=== PATIENT | male | born 1955 | race Caucasian/White ===

== ENCOUNTER 2016-05-26 10:41 | Emergency (ER) | payer OTHER ==
[~2016-05-26] VITALS: Ht 179.1 cm; Wt 106.1 kg
[2016-05-26 10:43] VITALS: TEMP 36.2; Ht 179.1 cm; Wt 106.1 kg
[2016-05-26] MEDS ORDERED: BUPRTAB51 PO (11:17)
[2016-05-26] MEDS ORDERED: MULT-506 PO (11:17)
[2016-05-26] MEDS ORDERED: TRAZ50TA35 PO (11:17)
[2016-05-26] MEDS ORDERED: DULO60CA44 PO (11:17)
[2016-05-26] MEDS ORDERED: CHOL1000 PO (11:17)
[2016-05-26] MEDS ORDERED: NRN600 PO (11:17)
[2016-05-26] MEDS ORDERED: FERR1TAB13 PO (11:17)
[2016-05-26] MEDS ORDERED: ACET1TAB84 PO (11:17)
[2016-05-26] MEDS ORDERED: MODA1TAB6 PO (11:17)
[2016-05-26] MEDS ORDERED: CRS/10 PO (11:17)
[2016-05-26 11:21] VITALS: O2SAT 92
[2016-05-26 11:38] LABS: BASO % 0.6 %; BASO ABS # 0.04 K/uL (0-0.2); COMPLETE YES; EOS % 7.4 %; HEMATOCRIT 40.7 % (42-52); IG% 0.1 %; LYMPH % 21.2 %; LYMPH ABS # 1.52 K/uL (1.2-3.4); MEAN CORPUSCULAR HEMOGLOBIN 31.2 pg (25-34); MEAN CORPUSCULAR HGB CONC 33.2 g/dl (32-36); MEAN PLATELET VOLUME 9.9 fL (7.4-10.4); MONO % 8.1 %; NEUT % 62.6 %; PLATELET COUNT 221 K/uL (130-400); RED BLOOD COUNT 4.33 M/uL (4.7-6.1); WHITE BLOOD COUNT 7.16 K/uL (4.8-10.8)
[2016-05-26 11:46] LABS: INR 0.9 (0.9-1.1); PARTIAL THROMBOPLASTIN RATIO 0.9; PROTHROMBIN TIME (PATIENT) 9.8 SECONDS (9.0-12.0)
[2016-05-26 11:53] LABS: BUN/CREATININE RATIO 11.8 (10-20); CALCIUM 8.7 mg/dl (8.5-10.1); CREATININE 0.92 mg/dl (0.60-1.40); POTASSIUM 3.8 mmol/L (3.5-5.1)
[2016-05-26 11:55] LABS: ALB/GLOB RATIO 1.2 (0.9-2)
--- NOTE | 2016-05-26 12:12 | DIAGNOSTIC IMAGING REPORT ---
RIGHT TIBIA AND FIBULA 2 VIEWS CLINICAL HISTORY: Right leg pain. FINDINGS: AP and lateral views of the right tibia and fibula are obtained. No prior studies are available for comparison at the time of dictation. The skeletal structures are well mineralized. There is a healing spiral fracture of the distal fibula. There is only minimal distraction. Periosteal reaction is noted. No tibial fracture is seen. The knee and ankle joints are grossly maintained. Soft tissue edema is present throughout the leg. A large plantar calcaneal enthesophyte is observed. IMPRESSION: 1. There is a healing spiral fracture of the distal fibular shaft as above. 2. No tibial fracture is seen. 3. Diffuse soft tissue edema is present throughout the right lower extremity. Electronically signed by: Renan Grossman M.D. 05/26/2016 12:11 PM Dictated Date/Time: 05/26/2016 12:09 PM
--- NOTE | 2016-05-26 12:13 | DIAGNOSTIC IMAGING REPORT ---
ULTRASOUND RIGHT LOWER EXTREMITY VENOUS CLINICAL HISTORY: Right leg pain and swelling. COMPARISON STUDY: No priors. TECHNIQUE: Real-time, grayscale, and color Doppler sonography of the deep veins of the right lower extremity was performed from the inguinal crease to the calf. Compression and augmentation were utilized. FINDINGS: There is no sonographic evidence of deep venous thrombosis identified in the right lower extremity. The common femoral, superficial femoral, and popliteal veins are patent and normally compressible. The greater saphenous vein and the profunda femoris vein at the junction with the common femoral vein are clear. The visualized calf veins are patent. IMPRESSION: There is no sonographic evidence of deep venous thrombosis identified in the right lower extremity. Electronically signed by: Renan Grossman M.D. 05/26/2016 12:12 PM Dictated Date/Time: 05/26/2016 12:11 PM
[2016-05-26 12:23] VITALS: O2SAT 98
[2016-05-26] MEDS ORDERED: METHYLPREDNISOLONE 125 MG VIAL IV STA (13:29)
[2016-05-26] MEDS ORDERED: DiphenhydrAMINE HCL 50 MG/ML VIAL IV STA (13:29)
[2016-05-26] MEDS ORDERED: FAMOTIDINE IV INJ 20 MG in DEXTROSE 5% 100ML 100 ML IV STA (13:29)
[2016-05-26] MEDS ORDERED: FAMOTIDINE 20MG/102 ML D5W ONE (13:42)
[2016-05-26 14:15] VITALS: BP 121/51; PULSE 54
[2016-05-26] MEDS ORDERED: OPTIRAY 320 IV PRN (15:00)
--- NOTE | 2016-05-26 15:09 | DIAGNOSTIC IMAGING REPORT ---
CT VENOGRAM OF THE PELVIS CLINICAL HISTORY: Right lower extremity edema. COMPARISON STUDY: Venous ultrasound of the right lower extremity dated 05/26/2016. TECHNIQUE: Following the IV administration of 93 cc of Optiray 20, CT venogram of the pelvis is performed from the pelvic inlet to the proximal femora. Images reviewed in the axial, sagittal, and coronal planes. IV contrast was not administered for this examination. CT DOSE: 550.05 mGy.cm FINDINGS: There is mild atherosclerotic calcification of the distal abdominal aorta and iliac arteries which are patent. The iliac veins are patent bilaterally. There is no evidence of pelvic deep venous thrombosis. The visualized bowel loops are normal in course and caliber. There is moderate colonic fecal retention. No pelvic sidewall or inguinal lymphadenopathy is seen. The bladder, prostate, and seminal vesicles are normal as visualized. There is mild dilatation of the distal ureters which is likely chronic. The proximal ureters are more normal in caliber. A fat-containing umbilical hernia is noted. There is no free fluid in the pelvis. The skeletal structures are osteopenic. The bony pelvis appears intact. No lytic or blastic lesions are identified. IMPRESSION: 1. There is no evidence of pelvic deep venous thrombosis as clinically queried. 2. No acute infectious or inflammatory findings are identified in the pelvis. 3. There is distention of the distal ureters of indeterminant etiology and significance. This is likely chronic. Clinical correlation will be required. Electronically signed by: Renan Grossman M.D. 05/26/2016 3:07 PM Dictated Date/Time: 05/26/2016 3:00 PM
--- NOTE | 2016-05-26 16:09 | EMERGENCY ROOM VISIT NOTE ---
History Report prepared by Luly: Farhat Hopper Under the Supervision of: Dr. Juvenal Richardson M.D. First contact with patient: 10:45 Chief Complaint: LEG PAIN,LEG INJURY Stated Complaint: RIGHT LEG PAIN POSSIBLE BLOOD CLOT History of Present Illness The patient is a 61 year old male who presents to the Emergency Room with complaints of waxing & waning right lower leg pain since last night. The pain started last night, was improved this morning, then worsened at work today. The pain is sharp and radiates up to his groin. The pain is rated 3/10 in severity. The pain is worsened when he sits down after being on his feet for an extended amount of time. The patient also noticed increased swelling and redness to the leg two days ago. The swelling is better today compared to last night. The patient had a fibular fracture repaired in March. He was in a non weight bearing boot until last week. This week he was in a walking boot. He denies any personal history of blood clots. He does have a family history of clots. Patient denies LOC, headache, fevers, chills, diaphoresis, visual changes, neck pain, chest pain, breathing difficulties, nausea, vomiting, abdominal pain, back pain, melena, hematochezia, urinary symptoms, numbness, weakness, lymphadenopathy, rash, or other complaints. Source of History: patient Onset: last night Position: leg (right, lower) Symptom Intensity: 3/10 Quality: sharp Timing: waxes/wanes Review of Systems See HPI for pertinent positives and negatives. A total of ten systems were reviewed and were otherwise negative. Past Medical & Surgical Medical Problems: (1) Anemia (2) Sleep apnea Family History Blood clots Social History Smoking Status: Former Smoker Housing Status: lives with family Occupation Status: employed Current/Historical Medications Scheduled Acetaminophen (Tylenol Arthritis Ext Rel), 650 MG PO Q8H Bupropion Hcl (Wellbutrin Xl), 300 MG PO DAILY Cholecalciferol (Vitamin D3), 1 TAB PO DAILY Duloxetine Hcl (Cymbalta), 60 MG PO DAILY Ferrous Sulfate (Kp Ferrous Sulfate), 1 TAB PO DAILY Gabapentin (Gabapentin), 600 MG PO HS Modafinil (Provigil), 200 MG PO DAILY Multivitamin (Multivitamin), 1 TAB PO DAILY Rosuvastatin Calcium (Crestor), 10 MG PO HS Trazodone Hcl (Trazodone), 75 MG PO HS Allergies Coded Allergies: Iodine (Unverified Allergy, Severe, unknown, 05/26/16) Meperidine (Unverified Allergy, Severe, hypertension, 05/26/16) NSAIDs (Unverified Allergy, Severe, hypertension, 05/26/16) Physical Exam Vital Signs Date Time Temp Pulse Resp B/P Pulse Ox O2 Delivery O2 Flow Rate FiO2 05/26/16 14:15 54 20 121/51 05/26/16 12:23 61 16 107/67 98 05/26/16 11:40 66 05/26/16 11:21 92 Room Air 05/26/16 10:43 36.2 82 18 119/74 97 Room Air Physical Exam GENERAL: Awake, alert, well-appearing, in no distress HENT: Normocephalic, atraumatic. Oropharynx unremarkable. EYES: Normal conjunctiva. Sclera non-icteric. NECK: Supple. No nuchal rigidity. FROM. No JVD. RESPIRATORY: Clear to auscultation. CARDIAC: Regular rate, normal rhythm. Extremities warm and well perfused. Pulses equal. ABDOMEN: Soft, non-distended. No tenderness to palpation. No rebound or guarding. No masses. RECTAL: Deferred. MUSCULOSKELETAL: Chest examination reveals no tenderness. The back is symmetrical on inspection without obvious abnormality. There is no CVA tenderness to palpation. No joint edema. LOWER EXTREMITIES: Right lower extremity: Normal TP and DP, capillary refill is 2 seconds. Leg is warm to touch. Minimal erythema noted. Right leg is larger than the left. Equivocal Homans on the right. NEURO: Normal sensorium. No sensory or motor deficits noted. SKIN: No rash or jaundice noted. Medical Decision & Procedures ER Provider Diagnostic Interpretation: X ray results as stated below per my interpretation and radiologist interpretation. Other radiology results as stated below per my review and radiologist interpretation ULTRASOUND RIGHT LOWER EXTREMITY VENOUS CLINICAL HISTORY: Right leg pain and swelling. COMPARISON STUDY: No priors. TECHNIQUE: Real-time, grayscale, and color Doppler sonography of the deep veins of the right lower extremity was performed from the inguinal crease to the calf. Compression and augmentation were utilized. FINDINGS: There is no sonographic evidence of deep venous thrombosis identified in the right lower extremity. The common femoral, superficial femoral, and popliteal veins are patent and normally compressible. The greater saphenous vein and the profunda femoris vein at the junction with the common femoral vein are clear. The visualized calf veins are patent. IMPRESSION: There is no sonographic evidence of deep venous thrombosis identified in the right lower extremity. Electronically signed by: Renan Grossman M.D. 05/26/2016 12:12 PM Dictated Date/Time: 05/26/2016 12:11 PM RIGHT TIBIA AND FIBULA 2 VIEWS CLINICAL HISTORY: Right leg pain. FINDINGS: AP and lateral views of the right tibia and fibula are obtained. No prior studies are available for comparison at the time of dictation. The skeletal structures are well mineralized. There is a healing spiral fracture of the distal fibula. There is only minimal distraction. Periosteal reaction is noted. No tibial fracture is seen. The knee and ankle joints are grossly maintained. Soft tissue edema is present throughout the leg. A large plantar calcaneal enthesophyte is observed. IMPRESSION: 1. There is a healing spiral fracture of the distal fibular shaft as above. 2. No tibial fracture is seen. 3. Diffuse soft tissue edema is present throughout the right lower extremity. Electronically signed by: Renan Grossman M.D. 05/26/2016 12:11 PM Dictated Date/Time: 05/26/2016 12:[address] VENOGRAM OF THE PELVIS CLINICAL HISTORY: Right lower extremity edema. COMPARISON STUDY: Venous ultrasound of the right lower extremity dated 05/26/2016. TECHNIQUE: Following the IV administration of 93 cc of Optiray 20, CT venogram of the pelvis is performed from the pelvic inlet to the proximal femora. Images reviewed in the axial, sagittal, and coronal planes. IV contrast was not administered for this examination. CT DOSE: 550.05 mGy.cm FINDINGS: There is mild atherosclerotic calcification of the distal abdominal aorta and iliac arteries which are patent. The iliac veins are patent bilaterally. There is no evidence of pelvic deep venous thrombosis. The visualized bowel loops are normal in course and caliber. There is moderate colonic fecal retention. No pelvic sidewall or inguinal lymphadenopathy is seen. The bladder, prostate, and seminal vesicles are normal as visualized. There is mild dilatation of the distal ureters which is likely chronic. The proximal ureters are more normal in caliber. A fat-containing umbilical hernia is noted. There is no free fluid in the pelvis. The skeletal structures are osteopenic. The bony pelvis appears intact. No lytic or blastic lesions are identified. IMPRESSION: 1. There is no evidence of pelvic deep venous thrombosis as clinically queried. 2. No acute infectious or inflammatory findings are identified in the pelvis. 3. There is distention of the distal ureters of indeterminant etiology and significance. This is likely chronic. Clinical correlation will be required. Electronically signed by: Renan Grossman M.D. 05/26/2016 3:07 PM Dictated Date/Time: 05/26/2016 3:00 PM Laboratory Results 05/26/16 11:25 Red Blood Count 4.33, Mean Corpuscular Volume 94.0, Mean Corpuscular Hemoglobin 31.2, Mean Corpuscular Hemoglobin Concent 33.2, Mean Platelet Volume 9.9, Neutrophils (%) (Auto) 62.6, Lymphocytes (%) (Auto) 21.2, Monocytes (%) (Auto) 8.1, Eosinophils (%) (Auto) 7.4, Basophils (%) (Auto) 0.6, Neutrophils # (Auto) 4.48, Lymphocytes # (Auto) 1.52, Monocytes # (Auto) 0.58, Eosinophils # (Auto) 0.53, Basophils # (Auto) 0.04 05/26/16 11:25 Test 05/26/16 11:25 White Blood Count 7.16 K/uL (4.8-10.8) Red Blood Count 4.33 M/uL (4.7-6.1) Hemoglobin 13.5 g/dL (14.0-18.0) Hematocrit 40.7 % (42-52) Mean Corpuscular Volume 94.0 fL (80-100) Mean Corpuscular Hemoglobin 31.2 pg (25-34) Mean Corpuscular Hemoglobin Concent 33.2 g/dl (32-36) Platelet Count 221 K/uL (130-400) Mean Platelet Volume 9.9 fL (7.4-10.4) Neutrophils (%) (Auto) 62.6 % Lymphocytes (%) (Auto) 21.2 % Monocytes (%) (Auto) 8.1 % Eosinophils (%) (Auto) 7.4 % Basophils (%) (Auto) 0.6 % Neutrophils # (Auto) 4.48 K/uL (1.4-6.5) Lymphocytes # (Auto) 1.52 K/uL (1.2-3.4) Monocytes # (Auto) 0.58 K/uL (0.11-0.59) Eosinophils # (Auto) 0.53 K/uL (0-0.5) Basophils # (Auto) 0.04 K/uL (0-0.2) RDW Standard Deviation 45.5 fL (36.4-46.3) RDW Coefficient of Variation 13.1 % (11.5-14.5) Immature Granulocyte % (Auto) 0.1 % Immature Granulocyte # (Auto) 0.01 K/uL (0.00-0.02) Prothrombin Time 9.8 SECONDS (9.0-12.0) Prothromb Time International Ratio 0.9 (0.9-1.1) Activated Partial Thromboplast Time 23.7 SECONDS (21.0-31.0) Partial Thromboplastin Ratio 0.9 Anion Gap 9.0 mmol/L (3-11) Est Creatinine Clear Calc Drug Dose 105.0 ml/min Estimated GFR () 104.4 Estimated GFR (Non- 90.1 BUN/Creatinine Ratio 11.8 (10-20) Calcium Level 8.7 mg/dl (8.5-10.1) Total Bilirubin 0.2 mg/dl (0.2-1) Aspartate Amino Transf (AST/SGOT) 24 U/L (15-37) Alanine Aminotransferase (ALT/SGPT) 38 U/L (12-78) Alkaline Phosphatase 107 U/L (45-117) Total Protein 7.1 gm/dl (6.4-8.2) Albumin 3.8 gm/dl (3.4-5.0) Globulin 3.3 gm/dl (2.5-4.0) Albumin/Globulin Ratio 1.2 (0.9-2) Laboratory results reviewed by me Medications Administered Medications (Trade) Dose Ordered Sig/Jimi Route Start Time Stop Time Status Last Admin Dose Admin Diphenhydramine HCl (Benadryl Inj) 50 mg NOW STAT IV 05/26/16 13:29 05/26/16 13:31 DC 05/26/16 13:46 50 MG Methylprednisolone Sodium Succinate 125 mg 125 mg NOW STAT IV 05/26/16 13:29 05/26/16 13:31 DC 05/26/16 13:47 125 MG Famotidine/ Dextrose (Pepcid IV Inj/ D5 100ml) 102 ml @ 200 mls/hr NOW STAT IV 05/26/16 13:29 05/26/16 13:59 DC 05/26/16 13:47 200 MLS/HR ED Course 1050: The patient was evaluated by my medical student. 1120: The patient was evaluated in room C3. A complete history and physical exam was performed. 1315: The patient is doing well. I reviewed all of the results so far. 1323: Spoke with Dr. Ramos, Diagnostic Radiologist. We will do a CTA Pelvis. 1329: Benadryl 50 mg IV, Solu-Medrol 125 mg IV. 1355: The patient had a reaction to IV dye over 40 years ago. I ordered Solu- Medrol and Benadryl preemptively. 1515: Reassessed the patient. Discussed the findings with him. He verbalized understanding and agreement of the treatment plan. He will take compression stockings with him. The patient is ready for discharge. Medical Decision Prior records reviewed and summarized above. Triage Nursing notes reviewed and agree them. Additional history obtained from the family. The patient's history was concerning for swelling and pain in the leg. Differential diagnosis: Etiologies such as DVT, joint effusion, infection, trauma, muscular, lymphedema , idiopathic, CHF, as well as others were entertained.. Physical examination: The physical examination revealed no signs of infection. Neurovascularly intact. ER treatment provided: The patient declined analgesia Benadryl, Pepcid, and Solu-Medrol prior to CT imaging On reassessment the patient felt well. SHRADDHA venus Diagnostics interpreted by me: The labs revealed an unremarkable CBC and chemistry panel. Imaging studies: Ultrasound, x-ray, and CT scan as above The patient has some dependent edema. He notes and awaiting more recently and this may be the cause of his swelling. He has no blood clot. He has great arterial pulses. There is no sign of infection. The patient has no white count or fever. There is no cellulitis on examination. The patient has no obstruction of his venous system all the way to the IVC. His left leg is completely normal. He does have some hydroureter however when questioning the patient states this is chronic and he has had this as a teenager. I discussed conservative management with the patient. He will follow-up as an outpatient. I gave my usual and customary discussion regarding this issue. He was given compression stockings. By the evaluation outlined above emergent etiologies such as septic joint, trauma, infection, CHF, as well as others were deemed relatively unlikely. The patient was informed about the findings as listed above. All questions were answered and he was pleased with the treatment. Return instructions were outlined and the patient was discharged in stable condition. Outpatient prescription management: The change Referral: The patient was referred back to his primary care physician for follow-up for a recheck of the current condition. The chart was completed utilizing [employer] Speech voice recognition software. Grammatical errors, random word insertions, pronoun errors, and incomplete sentences are an occasional consequence of this system due to software limitations, ambient noise, and hardware issues. Any formal questions or concerns about the content, text, or information contained within the body of this dictation should be directly addressed to the physician for clarification. Impression Primary Impression: Edema of right lower extremity Scribe Attestation The scribe's documentation has been prepared under my direction and personally reviewed by me in its entirety. I confirm that the note above accurately reflects all work, treatment, procedures, and medical decision making performed by me. Departure Information Dispostion Home / Self-Care Referrals Nikhil Landry MD (PCP) Forms HOME CARE DOCUMENTATION FORM, IMPORTANT VISIT INFORMATION Patient Instructions My [facility] Additional Instructions Diagnosis: 1. Right lower extremity edema Continue current medications. Use the compression stockings as discussed. Elevate your leg to minimize swelling. Continue care as outlined by orthopedics. Return to the ER immediately for spreading redness, fevers, severe pain, or as needed.
== END 2016-05-26 15:54 | disposition home or self-care (01) ==
LOC: C.EDB 10:43 → C.EDC 15:54
DX: R60.0 Localized edema (principal); M79.604 Pain in right leg; N13.4 Hydroureter; G47.30 Sleep apnea, unspecified; Z87.891 Personal history of nicotine dependence

== ENCOUNTER 2017-08-16 14:20 | Emergency (ER) | payer OTHER ==
[~2017-08-16 14:20] MED LIST: ACET1TAB84 PO; BUPRTAB51 PO; CHOL1000 PO; CRS/10 PO; DULO60CA44 PO; FERR1TAB13 PO; MODA200T42 PO; MULT-506 PO; NRN600 PO; TRAZ50TA35 PO
[2017-08-16 14:25] VITALS: TEMP 36.7
[2017-08-16] MEDS ORDERED: HYDROmorphone INJ 1 MG/ML SYR IV STA ×2 (14:54→16:41)
[2017-08-16] MEDS ORDERED: METOCLOPRAMIDE HCL INJ 5 MG/ML 2 ML VIAL IV STA (14:54)
[2017-08-16] MEDS ORDERED: SODIUM CHLORIDE 0.9% 1000ML 1,000 ML IV STA (14:54)
[2017-08-16] MEDS ORDERED: OPTIRAY 320 IV PRN (15:15)
[2017-08-16] MEDS ORDERED: ONDANSETRON INJ 2 MG/ML 2 ML VIAL IV STA (15:16)
[2017-08-16] MEDS ORDERED: DOCU-94 PO (15:32)
[2017-08-16] MEDS ORDERED: FERR325T5 PO (15:32)
[2017-08-16] MEDS ORDERED: PANT40TA PO (15:32)
[2017-08-16] MEDS ORDERED: ARMO250T5 PO (15:32)
[2017-08-16] MEDS ORDERED: GLUCTAB18 PO (15:32)
[2017-08-16] MEDS ORDERED: MISC4CAP PO (15:32)
[2017-08-16] MEDS ORDERED: ENOX40IN SQ (15:32)
[2017-08-16] MEDS ORDERED: MULT-190 PO (15:32)
[2017-08-16] MEDS ORDERED: ZALE5CAP29 PO (15:32)
[2017-08-16] MEDS ORDERED: TAMS0.4C38 PO (15:32)
[2017-08-16] MEDS ORDERED: POLYSOL4 OPB (15:32)
[2017-08-16 15:39] LABS: ISTAT IONIZED CALCIUM 1.16 mmol/l (1.12-1.32); ISTAT POTASSIUM 4.3 mEq/L (3.3-5.0)
[2017-08-16 15:50] LABS: BASO % 0.4 %; BASO ABS # 0.03 K/uL (0-0.2); EOS % 11.1 %; EOS ABS # 0.89 K/uL (0-0.5); HEMATOCRIT 37.1 % (42-52); HEMOGLOBIN 11.8 g/dL (14.0-18.0); IG# 0.04 K/uL (0.00-0.02); LYMPH % 22.5 %; MEAN CELL VOLUME 93.5 fL (80-100); MEAN CORPUSCULAR HEMOGLOBIN 29.7 pg (25-34); MEAN CORPUSCULAR HGB CONC 31.8 g/dl (32-36); MEAN PLATELET VOLUME 10.1 fL (7.4-10.4); MONO % 8.5 %; MONO ABS # 0.68 K/uL (0.11-0.59); NEUT ABS # 4.55 K/uL (1.4-6.5); PLATELET COUNT 234 K/uL (130-400); RED CELL DISTRIBUTION WIDTH CV 14.2 % (11.5-14.5); RED CELL DISTRIBUTION WIDTH SD 48.6 fL (36.4-46.3); WHITE BLOOD COUNT 7.99 K/uL (4.8-10.8)
--- NOTE | 2017-08-16 16:15 | EMERGENCY ROOM VISIT NOTE ---
History Report prepared by Luly: Yoli Alarcon Under the Supervision of: Dr. Fabio Harris M.D. First contact with patient: 14:39 Chief Complaint: OTHER COMPLAINT Stated Complaint: PAIN,TROUBLE WITH SHANTELLE DRAIN History of Present Illness The patient is a 62 year old male who presents to the Emergency Room with complaints of persistent right-sided abdominal pain, secondary to complications with his SHANTELLE drain that began earlier today. He reports that he had the SHANTELLE drain placed by Dr. Svitlana Quinteros at the [facility], noting that he followed up with him on 08/03/17. The patient states that today when he woke up he noticed that his SHANTELLE drain was clogged, noting that he began experiencing abdominal pain shortly after. He reports that his pain worsens when he sits up or with any movement, noting that laying down reduces the pain intensity. The patient called Dr. Quinteros, who told him he wasn't sure if he should change the bulb. Source of History: patient Onset: earlier today Position: abdomen (right-sided) Quality: other (right-sided abdominal pain) Timing: other (persistent) Modifying Factors (Worsening): movement, other (sits up) Modifying Factors (Relieving): other (laying down) Review of Systems See HPI for pertinent positives & negatives. A total of 10 systems reviewed and were otherwise negative. Past Medical & Surgical Medical Problems: (1) Anemia (2) Sleep apnea Family History Blood clots Social History Smoking Status: Former Smoker Housing Status: lives with family Occupation Status: employed Current/Historical Medications Scheduled Armodafinil (Nuvigil), 250 MG PO DAILY Bupropion Hcl (Wellbutrin Xl), 300 MG PO DAILY Cholecalciferol (Vitamin D3), 1,000 INTER.UNIT PO DAILY Docusate Sodium (Colace), 100 MG PO BID Duloxetine Hcl (Cymbalta), 60 MG PO DAILY Enoxaparin (Lovenox), 40 MG SQ DAILY Ferrous Sulfate (Ferrous Sulfate), 325 MG PO Q2D Gabapentin (Gabapentin), 600 MG PO HS Glucosamine-Chondroitin (Osteo Bi-Flex Regular Str), 1 TAB PO BID Multivitamin (Multivitamin), 1 TAB PO DAILY Ocuvite Preservision (Ocuvite Preservision), 1 TAB PO BID Pantoprazole (Protonix), 40 MG PO DAILY Polyethylene Glycol-Propylene (Systane), 1 DROP OPB BID Probiotic Product (Align), 4 MG PO QPM Rosuvastatin Calcium (Crestor), 10 MG PO HS Tamsulosin Hcl (Flomax), 0.4 MG PO BID Trazodone Hcl (Trazodone), 100 MG PO HS Scheduled PRN Acetaminophen (Tylenol Arthritis Ext Rel), 650 MG PO Q8H PRN for Pain Zaleplon (Sonata), 5 MG PO HS PRN for Sleep Allergies Coded Allergies: Iodine (Unverified Allergy, Severe, unknown, 05/26/16) Meperidine (Unverified Allergy, Severe, hypertension, 05/26/16) NSAIDs (Unverified Allergy, Severe, hypertension, 05/26/16) Physical Exam Vital Signs Date Time Temp Pulse Resp B/P (MAP) Pulse Ox O2 Delivery O2 Flow Rate FiO2 08/16/17 18:04 59 18 149/84 98 08/16/17 17:36 60 18 96/58 08/16/17 16:36 63 22 112/61 95 Nasal Cannula 2.0 08/16/17 15:44 63 08/16/17 15:44 59 19 113/62 92 Room Air 08/16/17 14:25 36.7 72 20 107/66 95 Room Air Physical Exam GENERAL: Awake, alert, well-appearing, in no acute distress. Fully in place. HENT: Normocephalic, atraumatic. Oropharynx unremarkable. EYES: Normal conjunctiva. Sclera non-icteric. NECK: Supple. No nuchal rigidity. FROM. No JVD. RESPIRATORY: Clear to auscultation. CARDIAC: Regular rate, normal rhythm. Extremities warm and well perfused. Pulses equal. ABDOMEN: 1 SHANTELLE drain that has a clot blocking the drain. Abdomen is diffusively tender. Surgical wounds appear to be healing well. Soft, non-distended. No rebound or guarding. No masses. RECTAL: Deferred. MUSCULOSKELETAL: Chest examination reveals no tenderness. The back is symmetrical on inspection without obvious abnormality. There is no CVA tenderness to palpation. No joint edema. LOWER EXTREMITIES: Calves are equal size bilaterally and non-tender. No edema. No discoloration. NEURO: Normal sensorium. No sensory or motor deficits noted. SKIN: No rash or jaundice noted. Medical Decision & Procedures ER Provider Diagnostic Interpretation: Radiology results as stated below per my review and radiologist interpretation: ABD/PELVIS NO IV OR ORAL CONT CLINICAL HISTORY: 62 years-old Male presenting with Pt has shantelle drain in place, increasing abd pain. TECHNIQUE: Multidetector CT of the abdomen and pelvis was performed without the use of intravenous contrast. IV contrast: None. A dose lowering technique was used consistent with the principles of ALARA (as low as reasonably achievable). COMPARISON: CTA from 05/26/2016. CT DOSE (mGy.cm): The estimated cumulative dose is 1079.88 mGycm. FINDINGS: Internal Medicine Nurse topogram: Unremarkable. Lung bases: Extensive bandlike and dependent opacities at the lung bases, likely extensive atelectasis. Mild multichamber enlargement of the heart. No pericardial or pleural effusion. Liver: Normal morphology. Normal density. Biliary: No gross biliary ductal dilatation allowing for noncontrast technique. Normal gallbladder. Pancreas: Mild parenchymal atrophy. Spleen: Normal noncontrast appearance. Adrenal glands: Normal noncontrast appearance. Kidneys and ureters: Normal noncontrast appearance. No nephrolithiasis. No hydronephrosis. Dilatation of the right ureter without evidence of an obstructing calculus. The ureter remains dilated to the level of the ureterovesical junction. The left ureter is not as dilated as the right. Bladder: Bladder decompressed with a Horn catheter. Pelvic organs: The patient is status post prostatectomy. A Wilian-Zuniga drain is in place in the prevesical space. No significant fluid at the terminus or along the course of the drain. Bowel: Moderate stool burden throughout normal caliber colon. Mild wall thickening of the mid sigmoid colon. Evaluation for pericolonic inflammatory change is difficult given the presence of extensive postsurgical changes in this region. No bowel obstruction. Peritoneal cavity: No free fluid or intraperitoneal gas. No focal fluid collection to suggest abscess. Extraperitoneal gas evident, likely postsurgical. This extends into the bilateral inguinal canals. Lymph nodes: No gross lymphadenopathy allowing for noncontrast technique. Small amount of fluid along the obturator regions bilaterally likely from lymph node dissection. Vasculature: Atherosclerosis of the normal caliber abdominal aorta. Abdominal wall: Small amount of fluid in the ventral midline abdomen along a suspected and surgical incision site in the supraumbilical region. Multiple foci of gas in the subcutaneous tissue of the anterior abdominal wall likely from and medication injection. No fluid along the Wilian-Zuniga drain, which enters in the right anterolateral abdomen. Musculoskeletal: Normal. IMPRESSION: 1. Postsurgical changes of prostatectomy. The degree of infiltration in the pelvis is likely expected postsurgically. No evidence of a focal abscess align for noncontrast technique. Small amount of fluid in the obturator regions of the external iliac lymph node chains likely represent lymph node dissection. No lymphadenopathy. 2. No significant fluid at the terminus of the Wilian-Zuniga drain. 3. Wall thickening of the mid sigmoid colon. This could indicate mild infectious colitis or be secondarily reactive from recent surgery. Although no significant diverticula are evident, this may also represent chronic diverticular disease. 4. Extensive bibasilar atelectasis. Electronically signed by: Gerry Paz M.D. 08/16/2017 4:21 PM Dictated Date/Time: 08/16/2017 4:14 PM Laboratory Results 08/16/17 15:20 Red Blood Count 3.97, Mean Corpuscular Volume 93.5, Mean Corpuscular Hemoglobin 29.7, Mean Corpuscular Hemoglobin Concent 31.8, Mean Platelet Volume 10.1, Neutrophils (%) (Auto) 57.0, Lymphocytes (%) (Auto) 22.5, Monocytes (%) (Auto) 8.5, Eosinophils (%) (Auto) 11.1, Basophils (%) (Auto) 0.4, Neutrophils # (Auto ) 4.55, Lymphocytes # (Auto) 1.80, Monocytes # (Auto) 0.68, Eosinophils # (Auto ) 0.89, Basophils # (Auto) 0.03 08/16/17 15:20 Test 08/16/17 15:20 08/16/17 15:25 08/16/17 17:20 White Blood Count 7.99 K/uL (4.8-10.8) Red Blood Count 3.97 M/uL (4.7-6.1) Hemoglobin 11.8 g/dL (14.0-18.0) Hematocrit 37.1 % (42-52) Mean Corpuscular Volume 93.5 fL (80-100) Mean Corpuscular Hemoglobin 29.7 pg (25-34) Mean Corpuscular Hemoglobin Concent 31.8 g/dl (32-36) Platelet Count 234 K/uL (130-400) Mean Platelet Volume 10.1 fL (7.4-10.4) Neutrophils (%) (Auto) 57.0 % Lymphocytes (%) (Auto) 22.5 % Monocytes (%) (Auto) 8.5 % Eosinophils (%) (Auto) 11.1 % Basophils (%) (Auto) 0.4 % Neutrophils # (Auto) 4.55 K/uL (1.4-6.5) Lymphocytes # (Auto) 1.80 K/uL (1.2-3.4) Monocytes # (Auto) 0.68 K/uL (0.11-0.59) Eosinophils # (Auto) 0.89 K/uL (0-0.5) Basophils # (Auto) 0.03 K/uL (0-0.2) RDW Standard Deviation 48.6 fL (36.4-46.3) RDW Coefficient of Variation 14.2 % (11.5-14.5) Immature Granulocyte % (Auto) 0.5 % Immature Granulocyte # (Auto) 0.04 K/uL (0.00-0.02) Estimated GFR () 86.4 Estimated GFR (Non- 74.5 BUN/Creatinine Ratio 12.1 (10-20) Calcium Level 8.9 mg/dl (8.5-10.1) Total Bilirubin 0.3 mg/dl (0.2-1) Direct Bilirubin < 0.1 mg/dl (0-0.2) Aspartate Amino Transf (AST/SGOT) 22 U/L (15-37) Alanine Aminotransferase (ALT/SGPT) 33 U/L (12-78) Alkaline Phosphatase 88 U/L (45-117) Total Protein 7.0 gm/dl (6.4-8.2) Albumin 3.1 gm/dl (3.4-5.0) Lipase 112 U/L (73-393) Bedside Hemoglobin 11.9 g/dl (14.0-18.0) Bedside Hematocrit 35 % (42-52) Bedside Sodium 141 mEq/L (135-144) Bedside Potassium 4.3 mEq/L (3.3-5.0) Bedside Chloride 103 mEq/L (101-112) Bedside Total CO2 27 mEq/l (24-31) Anion Gap 16.0 mmol/L (16-25) Bedside Blood Urea Nitrogen 13 mg/dl (7-18) Bedside Creatinine 1.0 mg/dl (0.6-1.3) Bedside Glucose (other) 95 mg/dl (70-99) Bedside Ionized Calcium (Maci) 1.16 mmol/l (1.12-1.32) Urine Color DK YELLOW Urine Appearance CLOUDY (CLEAR) Urine pH 6.0 (4.5-7.5) Urine Specific [place] 1.032 (1.000-1.030) Urine Protein 2+ (NEG) Urine Glucose (UA) NEG (NEG) Urine Ketones NEG (NEG) Urine Occult Blood 3+ (NEG) Urine Nitrite NEG (NEG) Urine Bilirubin 1+ (NEG) Urine Urobilinogen POS (NEG) Urine Leukocyte Esterase TRACE (NEG) Urine WBC (Auto) 5-10 /hpf (0-5) Urine RBC (Auto) >30 /hpf (0-4) Urine Hyaline Casts (Auto) 1-5 /lpf (0-5) Urine Epithelial Cells (Auto) 10-20 /lpf (0-5) Urine Bacteria (Auto) NEG (NEG) Urine Yeast (Auto) (NONE PRSENT) Labs reviewed by ED physician. Medications Administered Medications (Trade) Dose Ordered Sig/Jimi Route Start Time Stop Time Status Last Admin Dose Admin Hydromorphone HCl (Dilaudid Inj) 1 mg NOW STAT IV 08/16/17 14:54 08/16/17 14:57 DC 08/16/17 15:40 1 MG Sodium Chloride 1,000 ml @ 999 mls/hr Q1H1M STAT IV 08/16/17 14:54 08/16/17 15:54 DC 08/16/17 15:40 999 MLS/HR Ondansetron HCl (Zofran Inj) 4 mg NOW STAT IV 08/16/17 15:16 08/16/17 15:17 DC 08/16/17 15:39 4 MG Hydromorphone HCl (Dilaudid Inj) 1 mg NOW STAT IV 08/16/17 16:41 08/16/17 16:42 DC 08/16/17 17:07 1 MG ED Course 1446: Past medical records reviewed. The patient was evaluated in room A10. A complete history and physical examination was performed. 1454: Ordered Sodium Chloride 1000ml @ 999 mls/hr IV, Reglan Inj 10mg IV, and Dilaudid Inj 1mg IV. 1515: Just changed the patient's SHANTELLE grenade and it is now draining. Ordered Ioversol 125ml IV. 1516: Ordered Zofran Inj 4mg IV. 1546: I reevaluated the patient, who is feeling significantly better. 1641: Discussed the patient's case and test findings with Dr. Svitlana Quinteros at . He says that everything sounds good and would like me to remove the patient's SHANTELLE drain. He would like to have the patient follow up with him. Ordered Dilaudid Inj 1mg IV. 1704: I reevaluated the patient. Removed the patient's SHANTELLE drain. He feels much better. We discussed the test findings and treatment plan, he verbalized complete understanding. The patient will be discharged home. Medical Decision Differential diagnosis: Etiologies such as appendicitis, diverticulitis, PUD, biliary pathology, UTI, pancreatitis, obstruction, mesenteric ischemia, aortic pathology, infections, inflammatory bowel disease, renal colic, as well as others were entertained. This is a 62-year-old male who presents the emergency department complaining of increasing abdominal pain. The patient was sent in by his doctor at the [facility]. Using shared medical decision making with the patient we sent him for a CT of the abdomen and pelvis. The SHANTELLE drain itself does not appear to be near any large fluid collection. In addition the patient does not have a large elevation in his white blood cell count. He is slightly anemic however kidney liver and lipase are all essentially normal. An IV was established, the patient was given a normal saline bolus, Dilaudid 1 mg 2, Zofran. I did discuss the case with the patient's physician in the [facility] who agreed that the patient could be safely discharged home. He asked that I pull the SHANTELLE drain. Patient was in agreement with the treatment plan to follow-up with his doctor. Oleg Medication Reconcilliation Current Medication List: was personally reviewed by me Blood Pressure Screening Patient's blood pressure: Normal blood pressure Impression Primary Impression: Abdominal pain Additional Impression: Change or removal of drains Scribe Attestation The scribe's documentation has been prepared under my direction and personally reviewed by me in its entirety. I confirm that the note above accurately reflects all work, treatment, procedures, and medical decision making performed by me. Departure Information Dispostion Home / Self-Care Referrals Nikhil Landry MD (PCP) Forms HOME CARE DOCUMENTATION FORM, IMPORTANT VISIT INFORMATION, WORK / SCHOOL INSTRUCTIONS Patient Instructions My [facility] Additional Instructions Follow up with Dr Dejesus's office You have been examined and treated today on an emergency basis only. This is not a substitute for, or an effort to provide, complete comprehensive medical care. It is impossible to recognize and treat all injuries or illnesses in a single emergency department visit. It is therefore important that you follow up closely with Dr Landry. Call as soon as possible for an appointment. Thank you for your time and consideration. I look forward to speaking with you again soon. Please don't hesitate to call us if you have any questions. Problem Qualifiers Primary Impression: Abdominal pain Abdominal location: generalized Qualified Codes: R10.84 - Generalized abdominal pain
[2017-08-16 16:18] LABS: ALBUMIN 3.1 gm/dl (3.4-5.0); ALT/SGPT 33 U/L (12-78); AST/SGOT 22 U/L (15-37); BLOOD UREA NITROGEN 13 mg/dl (7-18); CALCIUM 8.9 mg/dl (8.5-10.1); CARBON DIOXIDE 28 mmol/L (21-32); CREATININE 1.07 mg/dl (0.60-1.40); GLUCOSE 91 mg/dl (70-99); LIPASE 112 U/L (73-393); POTASSIUM 4.4 mmol/L (3.5-5.1); SODIUM 140 mmol/L (136-145)
[2017-08-16 16:21] LABS: ALKALINE PHOSPHATASE 88 U/L (45-117)
--- NOTE | 2017-08-16 16:22 | DIAGNOSTIC IMAGING REPORT ---
ABD/PELVIS NO IV OR ORAL CONT CLINICAL HISTORY: 62 years-old Male presenting with Pt has shantelle drain in place, increasing abd pain. TECHNIQUE: Multidetector CT of the abdomen and pelvis was performed without the use of intravenous contrast. IV contrast: None. A dose lowering technique was used consistent with the principles of ALARA (as low as reasonably achievable). COMPARISON: CTA from 05/26/2016. CT DOSE (mGy.cm): The estimated cumulative dose is 1079.88 mGycm. FINDINGS: Production Service Manager topogram: Unremarkable. Lung bases: Extensive bandlike and dependent opacities at the lung bases, likely extensive atelectasis. Mild multichamber enlargement of the heart. No pericardial or pleural effusion. Liver: Normal morphology. Normal density. Biliary: No gross biliary ductal dilatation allowing for noncontrast technique. Normal gallbladder. Pancreas: Mild parenchymal atrophy. Spleen: Normal noncontrast appearance. Adrenal glands: Normal noncontrast appearance. Kidneys and ureters: Normal noncontrast appearance. No nephrolithiasis. No hydronephrosis. Dilatation of the right ureter without evidence of an obstructing calculus. The ureter remains dilated to the level of the ureterovesical junction. The left ureter is not as dilated as the right. Bladder: Bladder decompressed with a Horn catheter. Pelvic organs: The patient is status post prostatectomy. A Wilian-Zuniga drain is in place in the prevesical space. No significant fluid at the terminus or along the course of the drain. Bowel: Moderate stool burden throughout normal caliber colon. Mild wall thickening of the mid sigmoid colon. Evaluation for pericolonic inflammatory change is difficult given the presence of extensive postsurgical changes in this region. No bowel obstruction. Peritoneal cavity: No free fluid or intraperitoneal gas. No focal fluid collection to suggest abscess. Extraperitoneal gas evident, likely postsurgical. This extends into the bilateral inguinal canals. Lymph nodes: No gross lymphadenopathy allowing for noncontrast technique. Small amount of fluid along the obturator regions bilaterally likely from lymph node dissection. Vasculature: Atherosclerosis of the normal caliber abdominal aorta. Abdominal wall: Small amount of fluid in the ventral midline abdomen along a suspected and surgical incision site in the supraumbilical region. Multiple foci of gas in the subcutaneous tissue of the anterior abdominal wall likely from and medication injection. No fluid along the Wilian-Zuniga drain, which enters in the right anterolateral abdomen. Musculoskeletal: Normal. IMPRESSION: 1. Postsurgical changes of prostatectomy. The degree of infiltration in the pelvis is likely expected postsurgically. No evidence of a focal abscess align for noncontrast technique. Small amount of fluid in the obturator regions of the external iliac lymph node chains likely represent lymph node dissection. No lymphadenopathy. 2. No significant fluid at the terminus of the Wilian-Zuniga drain. 3. Wall thickening of the mid sigmoid colon. This could indicate mild infectious colitis or be secondarily reactive from recent surgery. Although no significant diverticula are evident, this may also represent chronic diverticular disease. 4. Extensive bibasilar atelectasis. Electronically signed by: Gerry Paz M.D. 08/16/2017 4:21 PM Dictated Date/Time: 08/16/2017 4:14 PM
[2017-08-16 18:04] VITALS: BP 149/84; PULSE 59; O2SAT 98
== END 2017-08-16 18:05 | disposition home or self-care (01) ==
LOC: C.EDB 14:23 → C.EDA 18:05
DX: R10.84 Generalized abdominal pain (principal); Z48.03 Encounter for change or removal of drains; G47.30 Sleep apnea, unspecified; D64.9 Anemia, unspecified; Z87.891 Personal history of nicotine dependence

== ENCOUNTER 2022-05-15 14:53 | Observation (INO) ==
--- NOTE | 2022-05-15 15:23 | Emergency Department Note ---
Impression & Plan Chest pain, DINH (dyspnea on exertion) ED Provider Note Provider: Eduardo Terrell MD DATE OF SERVICE: 05/15/2022 CHIEF COMPLAINT: Shortness of breath, chest pain HISTORY OF PRESENT ILLNESS: Patient is a 67-year-old gentleman history of prostate cancer, hyperlipidemia, and GERD/GAVE presenting here today stating over the past month or 2 has been having increased shortness of breath with walking up grade or doing steps. Has been belching and coughing a bit more. Dry cough in nature. reports he was seen at his primary doctor's office on Monday he reports that had blood work and x-ray and EKG and was planning to have an outpatient stress test in June and PFT testing in June. Reports today however he went out to get the mail and felt a pressure and tightness across his chest and broke out with a sweat with shortness of breathing. Given this came here for evaluation. Denies a cardiac history. No trauma reported. Patient reports a very distant history of A. fib 1 time but no recurrence; denies palpitations. No chest tightness currently. States sometimes he had esophageal spasm of the sharp pains but nothing like that today. Stress test years ago. Still feels a bit off. No leg swelling reported. PAST MEDICAL HISTORY: As noted above MEDICATIONS: Reviewed home medication list. 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 PHYSICAL EXAM: GENERAL: alert and oriented in no acute distress on stretcher resting with eyes closed Head: normocephalic and atraumatic EYES: No injection, discharge or icterus. NECK: Trachea midline LUNGS: Airway patent. No retractions. Breath sounds clear anteriorly HEART: Regular rate and rhythm. No chest wall tenderness ABDOMEN: Soft and non-tender, without guarding or rebound. SKIN: Acyanotic, warm, dry, without rashes EXTREMITIES: Without swelling, tenderness or deformity NEUROLOGICAL: No focal deficits. No aphasia. No facial droop or slurred speech. EK bpm normal sinus rhythm. No PVC or PAC. No acute ST segment elevation or depression with a QTC of 449 CONTINUOUS CARDIAC MONITORING: was ordered and showed a heart rate of 60s-80s bpm in NSR Patient's laboratory studies and imaging reviewed. Differential includes Cardiac ischemia, aortic dissection, pulmonary embolism, pneumothorax, pneumonia, pericarditis, myocarditis, esophageal rupture, GERD, cholecystitis, pancreatitis, musculoskeletal, as well as other pathologies. IMPRESSION/MEDICAL DECISION MAKIN-year-old gentleman male with 68 weeks of dyspnea on exertion and decreased exercise tolerance with episode of chest discomfort/tightness today. Has a GI history including GAVE with recent iron infusions and a bit of a dry cough. Recently seen in the PCPs office who ordered for outpatient cardiac testing by the patient's report. States his blood work on the electronic portal was not significantly abnormal. EKG obtained here although patient is feeling a bit fatigued but without significant chest tightness or pressure without significant findings. Concerning anginal type symptoms. Strong family history. Basic labs and chest x-ray obtained. No significant leg swelling or tenderness or recent travel and lower suspicion this represents VTE or CHF. COVID test sent for completeness but does not seem that infectious. Heart score is elevated at 4. Troponin is sent. Likely labs returned reassuring and troponin is not elevated. Patient does not wish to take aspirin given his history of GAVE. Chest x-ray with evidence of pneumonia or pulmonary edema on review. Given increased and dyspnea on exertion with the exertional symptoms and some chest tightness today recommended staying for further cardiac evaluation. He and his are in agreement. DIAGNOSIS: Chest pain, dyspnea on exertion DISPOSITION: Hospitalist will evaluate Patient was agreeable with this plan. Past Med/Surg History Medical History Cancer PROSTATE-2017 Congenital dilatation of ureter BILATERALLY GERD (gastroesophageal reflux disease) Hyperlipidemia Migraine HX Narcolepsy MILD Peptic ulcer HX Sleep apnea CPAP Tachycardia EPISODE-2019 -CLEARED WITH STRESS TEST [facility]-NO CARDIOLOGY F/U Temporomandibular joint disorder [place]IC[place] BILAT HAS NEVER LOCKED Surgical History H/O hemorrhoidectomy History of appendectomy History of colonoscopy History of esophagogastroduodenoscopy (EGD) History of Christi fundoplication History of prostatectomy 2017-NO CHEMO/NO RADIATION History of toe surgery LEFT FOOT History of tonsillectomy Family History Father Family history of diabetes mellitus Social History Smoking Status: Never smoker Second Hand Exposure: Yes (PARENTS SMOKED); Hx Alcohol Use: No Hx Substance Use: No Preferred Language: Czech Communication Ability: Effective Visual Impairment: No Limitations Car Supplier Required: No Beliefs That Will Affect Care: None Current Living Situation: Spouse and Family Feels Safe at Home: Yes Assistive Devices: Glasses Allergies Allergies Allergy/AdvReac Type Severity Reaction Status Date / Time Iodinated Contrast Media Allergy Severe Anaphylaxis Unverified 09/13/21 14:19 iodine Allergy Severe Anaphylaxis Verified 09/13/21 14:17 meperidine Allergy Severe Hypotension Verified 09/13/21 00:04 NSAIDS (Non-Steroidal Allergy Severe LOW BP, Verified 09/13/21 00:04 Anti-Inflamma STOMACH ISSUES shellfish derived AdvReac Intermediate DIARRHEA, Verified 09/13/21 00:04 ABDOMINAL CRAMPING Home Meds Home Medications Medication Instructions Recorded Confirmed Bifidobacterium infantis 4 mg 4 mg PO QAM 02/27/20 05/15/22 capsule (Align) acetaminophen 650 mg 1,300 mg PO Q12H 02/27/20 05/15/22 tablet,extended release (Tylenol Arthritis Pain) bupropion HCl 300 mg 24 hr tablet, 300 mg PO QAM 02/27/20 05/15/22 extended release (Wellbutrin XL) cholecalciferol (vitamin D3) 25 25 mcg PO QPM 02/27/20 05/15/22 mcg (1,000 unit) capsule (Vitamin D3) docusate sodium 250 mg capsule 250 mg PO BID 02/27/20 05/15/22 duloxetine 60 mg capsule,delayed 60 mg PO QAM 02/27/20 05/15/22 release gabapentin 600 mg tablet 600 mg PO HS 02/27/20 05/15/22 glucosamine-chondroitin 250 mg-200 1 tab PO BID 02/27/20 05/15/22 mg tablet (Osteo Bi-Flex) multivitamin 1 tab PO QAM 02/27/20 05/15/22 pantoprazole 40 mg tablet,delayed 40 mg PO BID 02/27/20 05/15/22 release peg 400-propylene glycol 0.4 %-0.3 1 drp OPB BID 02/27/20 05/15/22 % eye drops (Systane (propylene glycol)) rosuvastatin 10 mg tablet 10 mg PO HS 02/27/20 05/15/22 tamsulosin 0.4 mg capsule 0.4 mg PO BID 02/27/20 05/15/22 trazodone 100 mg tablet 100 mg PO HS 02/27/20 05/15/22 zaleplon 5 mg capsule 5 mg PO HS PRN Sleep 02/27/20 05/15/22 dicyclomine 10 mg capsule 10 mg PO BID 09/13/21 05/15/22 solriamfetol 150 mg tablet (Sunosi) 150 mg PO DAILY 09/13/21 05/15/22 vit C 250 mg-vit E 90 mg-zinc 40 1 tab PO BID 09/13/21 05/15/22 mg-copper 1 [id number] capsule (PreserVision AREDS-2) famotidine 20 mg tablet (Pepcid) 20 mg PO DAILY 05/15/22 05/15/22 sucralfate 1 gram tablet 1 g PO QID 05/15/22 05/15/22 Results & Data (ED) Vital Signs Vital Signs - 24 hr 05/15/22 14:59 05/15/22 15:26 05/15/22 15:26 Temperature 36.5 C Temperature Source Oral Pulse Rate 91 H Pulse Rate [Apical] 73 Pulse Rate from SpO2 Sensor Pulse Rhythm Pulse Rhythm [Apical] Regular Pulse Strength [Apical] Normal Respiratory Rate 18 19 Respiratory Effort / Characteristics Non-Labored Spontaneous Respiratory Pattern Regular Blood Pressure 128/80 Blood Pressure [Left Arm] 149/78 H Blood Pressure Mean 96 Blood Pressure Mean [Left Arm] 101 Pulse Oximetry 94 95 95 Oxygen Delivery Method Room Air Room Air Room Air Sepsis Recent Fever Within 48 Hours No Sepsis New/Unexplained Change in Mental Status No Sepsis Action Taken by Nursing No Action Required 05/15/22 15:28 05/15/22 15:12 05/15/22 15:13 Temperature Temperature Source Pulse Rate 78 82 Pulse Rate [Apical] Pulse Rate from SpO2 Sensor 82 Pulse Rhythm Regular Pulse Rhythm [Apical] Pulse Strength [Apical] Respiratory Rate 19 21 Respiratory Effort / Characteristics Respiratory Pattern Blood Pressure 149/78 H Blood Pressure [Left Arm] Blood Pressure Mean 101 Blood Pressure Mean [Left Arm] Pulse Oximetry 95 94 Oxygen Delivery Method Room Air Sepsis Recent Fever Within 48 Hours Sepsis New/Unexplained Change in Mental Status Sepsis Action Taken by Nursing 05/15/22 15:20 05/15/22 15:30 05/15/22 15:30 Temperature Temperature Source Pulse Rate 78 73 Pulse Rate [Apical] Pulse Rate from SpO2 Sensor 79 73 Pulse Rhythm Pulse Rhythm [Apical] Pulse Strength [Apical] Respiratory Rate 23 18 Respiratory Effort / Characteristics Respiratory Pattern Blood Pressure 133/83 Blood Pressure [Left Arm] Blood Pressure Mean 99 Blood Pressure Mean [Left Arm] Pulse Oximetry 93 93 Oxygen Delivery Method Sepsis Recent Fever Within 48 Hours Sepsis New/Unexplained Change in Mental Status Sepsis Action Taken by Nursing 05/15/22 15:40 05/15/22 15:50 05/15/22 16:00 Temperature Temperature Source Pulse Rate 72 69 Pulse Rate [Apical] Pulse Rate from SpO2 Sensor 72 69 Pulse Rhythm Pulse Rhythm [Apical] Pulse Strength [Apical] Respiratory Rate 22 21 Respiratory Effort / Characteristics Respiratory Pattern Blood Pressure 127/74 Blood Pressure [Left Arm] Blood Pressure Mean 91 Blood Pressure Mean [Left Arm] Pulse Oximetry 92 91 Oxygen Delivery Method Sepsis Recent Fever Within 48 Hours Sepsis New/Unexplained Change in Mental Status Sepsis Action Taken by Nursing 05/15/22 16:00 05/15/22 16:10 05/15/22 16:20 Temperature Temperature Source Pulse Rate 69 71 67 Pulse Rate [Apical] Pulse Rate from SpO2 Sensor 69 72 67 Pulse Rhythm Pulse Rhythm [Apical] Pulse Strength [Apical] Respiratory Rate 19 21 20 Respiratory Effort / Characteristics Respiratory Pattern Blood Pressure Blood Pressure [Left Arm] Blood Pressure Mean Blood Pressure Mean [Left Arm] Pulse Oximetry 91 94 91 Oxygen Delivery Method Sepsis Recent Fever Within 48 Hours Sepsis New/Unexplained Change in Mental Status Sepsis Action Taken by Nursing Laboratory Data 05/15/22 15:23 05/15/22 15:23 Lab Results 05/15/22 05/15/22 05/15/22 Range/Units 15:18 15:23 15:23 WBC 8.95 (4.8-10.8) K/ul RBC 4.64 (4.63-6.08) M/uL Hgb 14.0 (14.0-18.0) g/dl Hct 42.9 (40.1-51.0) % MCV 92.5 (80.0-100.0) fL MCH 30.2 (25.0-34.0) pg MCHC 32.6 (32.0-36.0) g/dL RDW Std Deviation 48.2 H (36.4-46.3) fL RDW Coeff of Alexis 14.3 (11.5-14.5) % Plt Count 207 (130-400) K/uL MPV 9.9 (9.4-12.4) fL Immature Gran % (Auto) 0.2 % Neut % (Auto) 69.2 % Lymph % (Auto) 17.2 % Webb % (Auto) 6.5 % Eos % (Auto) 6.0 % Baso % (Auto) 0.9 % Neut # (Auto) 6.19 (1.4-6.5) K/uL Lymph # (Auto) 1.54 (1.2-3.4) K/uL Webb # (Auto) 0.58 (0.24-0.82) K/uL Eos # (Auto) 0.54 H (0-0.50) K/uL Baso # (Auto) 0.08 (0-0.2) K/uL Immature Gran # (Auto) 0.02 (0.00-0.02) K/uL Sodium 139 (136-145) mmol/L Potassium 4.1 (3.5-5.1) mmol/L Chloride 109 H (98-107) mmol/L Carbon Dioxide 27 (21-32) mmol/L Anion Gap 3 (3-11) BUN 15 (6-23) mg/dl Creatinine 0.92 (0.6-1.4) mg/dl Est Cr Clr Drug Dosing 98.0 ml/min Est GFR ( Amer) 100.1 ml/min Est GFR (Non-Af Amer) 86.4 ml/min BUN/Creatinine Ratio 16.3 (10-20) Glucose 116 H (70-99(Fasting)) mg/dl Calcium 8.7 (8.5-10.1) mg/dl Total Bilirubin 0.4 (0.2-1.0) mg/dl AST 25 (13-39) U/L ALT 30 (7-52) U/L Alkaline Phosphatase 79 (34-104) U/L Troponin I High Sens 4.2 (0-20) pg/ml Total Protein 7.2 (6.0-8.3) gm/dl Albumin 4.5 (3.4-5.0) gm/dl Globulin 2.7 (2.5-4.0) gm/dl Albumin/Globulin Ratio 1.7 (0.9-2) Lipase 31 (11-82) U/L SARS-CoV-2, RNA, NAAT NEGATIVE (NEGATIVE) Imaging Data Radiologist's Impression: Chest X-Ray 05/15/22 15:18 SINGLE VIEW CHEST CLINICAL HISTORY: Atypical chest pain FINDINGS: An AP, portable, upright chest radiograph is compared to study dated 09/13/2021. The heart is mildly enlarged. The pulmonary vasculature is noncongested. Chronic interstitial thickening similar to previous. The lungs and pleural spaces are clear. No pneumothorax is seen. The bony thorax is grossly intact noting dependent atelectasis. IMPRESSION: No active disease in the chest. ACT 112: Negative or not required by law. Electronically signed by: Renan Grossman M.D. 05/15/2022 3:45 PM Discharge Plan Visit Data Chief Complaint: Chest Pain Stated Complaint: CHEST PAIN, SOB ED Provider: Eduardo Terrell Discharge Problem: Chest pain, DINH (dyspnea on exertion) Patient Disposition: Being Evaluated by Hospitalist Forms Stand Alone Forms: [facility] Prescriptions Prescriptions: No Action acetaminophen [Tylenol Arthritis Pain] 650 mg Tablet Extended Release 1,300 mg PO Q12H docusate sodium 250 mg Capsule 250 mg PO BID cholecalciferol (vitamin D3) [Vitamin D3] 25 mcg (1,000 unit) Capsule 25 mcg PO QPM glucosamine-chondroitin [Osteo Bi-Flex] 250-200 mg Tablet 1 tab PO BID bupropion HCl [Wellbutrin XL] 300 mg Tablet Extended Release 24 Hr 300 mg PO QAM multivitamin Tablet 1 tab PO QAM gabapentin 600 mg Tablet 600 mg PO HS pantoprazole 40 mg Tablet,Delayed Release (Dr/Ec) 40 mg PO BID duloxetine 60 mg Capsule,Delayed Release(Dr/Ec) 60 mg PO QAM Align 4 mg Capsule 4 mg PO QAM Systane (propylene glycol) 0.4-0.3 % Drops 1 drp OPB BID tamsulosin 0.4 mg Capsule 0.4 mg PO BID trazodone 100 mg Tablet 100 mg PO HS zaleplon 5 mg Capsule 5 mg PO HS PRN (Reason: Sleep) rosuvastatin 10 mg Tablet 10 mg PO HS Sunosi 150 mg tablet 150 mg PO DAILY PreserVision AREDS-2 250-90-40-1 mg Capsule 1 tab PO BID dicyclomine [Bentyl] 10 mg Capsule 10 mg PO BID sucralfate 1 gram tablet 1 g PO QID famotidine [Pepcid] 20 mg Tablet 20 mg PO DAILY Referrals Referrals: Nikhil Landry MD [Primary Care Provider] -
[2022-05-15 15:33] LABS: Basophils # (auto) 0.08 K/uL (0-0.2); Basophils % (auto) 0.9 %; Eosinophils # (auto) 0.54 K/uL (0-0.50); Hematocrit (blood only) 42.9 % (40.1-51.0); Immature Granulocytes # (auto) 0.02 K/uL (0.00-0.02); Immature Granulocytes % (auto) 0.2 %; Lymphocytes # (auto) 1.54 K/uL (1.2-3.4); Lymphocytes % (auto) 17.2 %; Mean Corpuscular Hemoglobin 30.2 pg (25.0-34.0); Mean Corpuscular Hgb Conc 32.6 g/dL (32.0-36.0); Mean Corpuscular Volume 92.5 fL (80.0-100.0); Mean Platelet Volume 9.9 fL (9.4-12.4); Monocytes # (auto) 0.58 K/uL (0.24-0.82); Monocytes % (auto) 6.5 %; Neutrophils # (auto) 6.19 K/uL (1.4-6.5); Neutrophils % (auto) 69.2 %; Platelet Count 207 K/uL (130-400); RDW Coefficient of Variation 14.3 % (11.5-14.5); RDW Standard Deviation 48.2 fL (36.4-46.3); Red Blood Count 4.64 M/uL (4.63-6.08); White Blood Count 8.95 K/ul (4.8-10.8)
--- NOTE | 2022-05-15 15:46 | XRay Report ---
SINGLE VIEW CHEST CLINICAL HISTORY: Atypical chest pain FINDINGS: An AP, portable, upright chest radiograph is compared to study dated 09/13/2021. The heart i s mildly enlarged. The pulmonary vasculature is noncongested. Chronic interstitial thickening similar to previous. The lungs and pleural spaces are clear. No pneumothorax is seen. The bony thorax is aria ssly intact noting dependent atelectasis. IMPRESSION: No active disease in the chest. ACT 112: Negative or not required by law. Electronically signed by: Renan Grossman M.D. 05/15/2022 3:45 PM
[2022-05-15 15:54] LABS: Albumin Globulin Ratio 1.7 (0.9-2); Albumin Level 4.5 gm/dl (3.4-5.0); BUN Creatinine Ratio 16.3 (10-20); Bilirubin,Total 0.4 mg/dl (0.2-1.0); Calcium 8.7 mg/dl (8.5-10.1); Est GFR (African American) 100.1 ml/min; Est GFR (Non-African American) 86.4 ml/min; Globulin 2.7 gm/dl (2.5-4.0); Potassium 4.1 mmol/L (3.5-5.1); Total Protein 7.2 gm/dl (6.0-8.3)
[2022-05-15 16:00] LABS: Troponin I High Sensitivity 4.2 pg/ml (0-20)
--- NOTE | 2022-05-15 16:33 | History & Physical Report ---
Date of Service May 15, 2022 Assessment & Plan (1) Chest pain: (2) DINH (dyspnea on exertion): Plan: This is a 67-year-old male with PMH of exercise-induced asthma, history of prostate cancer, depression, idiopathic hypersomnolence, RLS, DC on CPAP, GERD/GAVE and other medical problems listed below who presents with chest pain that began earlier today that has since resolved. R/o ACS; risk factors include male gender, HLD, +family history of CAD Initial troponin negative. Continue to trend EKG- NSR without acute ST changes CXR-no active disease in chest Check 2D echo, routine cardiology consult, n.p.o. for possible stress test in a.m. Repeat EKG in am Fasting lipid panel, hemoglobin A1c in a.m. (3) GAVE (gastric antral vascular ectasia): (4) GERD (gastroesophageal reflux disease): Plan: Continue Pepcid, Protonix. Caution for GI bleeding in setting of GAVE (5) Mood disorder: Plan: Continue Wellbutrin, duloxetine (6) Hyperlipidemia: Plan: Continue statin (7) Sleep apnea: Plan: CPAP HS Idiopathic hypersomnolence Trazodone HS, Sunosi not on formulary DVT Ppx: SQ heparin Code status: FULL PCP: Gris Dispo: Observation PCU Patient seen in collaboration with Dr. Carroll. Please see addendum. History of Present Illness Chief Complaint: chest tightness, SOB Primary Care Provider: Nikhil Landry MD This is a 67-year-old male with PMH of exercise-induced asthma, history of prostate cancer, depression, idiopathic hypersomnolence, RLS, DC on CPAP, GERD/GAVE and other medical problems listed below who presents with chest pain that began earlier today. Patient has been experiencing dyspnea on exertion for the past 6 weeks. Was walking to his mailbox earlier today when he experienced more significant dyspnea on exertion as well as a tight, pressure-like pain across his chest with associated diaphoresis. Pain resolved when he stopped walking and stood still. Has been pain-free since arrival to the hospital. Denies any known cardiac history. Is not on aspirin. Is on 10 mg atorvastatin daily. No known history of hypertension. Is a non-smoker. Does have family history of CAD with father requiring CABG in the past. Was seen in PCPs office last week with EKG and plans for outpatient stress test in June as well as PFT testing in June. Currently resting comfortably and denies any fever, chills, lightheadedness, headache, chest pain, palpitations, shortness of breath, nausea, vomiting, abdominal pain, dysuria, diarrhea or constipation. Allergies Allergy/AdvReac Type Severity Reaction Status Date / Time Iodinated Contrast Media Allergy Severe Anaphylaxis Unverified 09/13/21 14:19 iodine Allergy Severe Anaphylaxis Verified 09/13/21 14:17 meperidine Allergy Severe Hypotension Verified 09/13/21 00:04 NSAIDS (Non-Steroidal Allergy Severe LOW BP, Verified 09/13/21 00:04 Anti-Inflamma STOMACH ISSUES shellfish derived AdvReac Intermediate DIARRHEA, Verified 09/13/21 00:04 ABDOMINAL CRAMPING Home Medications Medication Instructions Recorded Confirmed Type Bifidobacterium infantis 4 mg 4 mg PO QAM 02/27/20 05/15/22 History capsule (Align) acetaminophen 650 mg 1,300 mg PO Q12H 02/27/20 05/15/22 History tablet,extended release (Tylenol Arthritis Pain) bupropion HCl 300 mg 24 hr tablet, 300 mg PO QAM 02/27/20 05/15/22 History extended release (Wellbutrin XL) cholecalciferol (vitamin D3) 25 25 mcg PO QPM 02/27/20 05/15/22 History mcg (1,000 unit) capsule (Vitamin D3) docusate sodium 250 mg capsule 250 mg PO BID 02/27/20 05/15/22 History duloxetine 60 mg capsule,delayed 60 mg PO QAM 02/27/20 05/15/22 History release gabapentin 600 mg tablet 600 mg PO HS 02/27/20 05/15/22 History glucosamine-chondroitin 250 mg-200 1 tab PO BID 02/27/20 05/15/22 History mg tablet (Osteo Bi-Flex) multivitamin 1 tab PO QAM 02/27/20 05/15/22 History pantoprazole 40 mg tablet,delayed 40 mg PO BID 02/27/20 05/15/22 History release peg 400-propylene glycol 0.4 %-0.3 1 drp OPB BID 02/27/20 05/15/22 History % eye drops (Systane (propylene glycol)) rosuvastatin 10 mg tablet 10 mg PO HS 02/27/20 05/15/22 History tamsulosin 0.4 mg capsule 0.4 mg PO BID 02/27/20 05/15/22 History trazodone 100 mg tablet 100 mg PO HS 02/27/20 05/15/22 History zaleplon 5 mg capsule 5 mg PO HS PRN Sleep 02/27/20 05/15/22 History dicyclomine 10 mg capsule 10 mg PO BID 09/13/21 05/15/22 History solriamfetol 150 mg tablet (Sunosi) 150 mg PO DAILY 09/13/21 05/15/22 History vit C 250 mg-vit E 90 mg-zinc 40 1 tab PO BID 09/13/21 05/15/22 History mg-copper 1 [id number] capsule (PreserVision AREDS-2) famotidine 20 mg tablet (Pepcid) 20 mg PO DAILY 05/15/22 05/15/22 History sucralfate 1 gram tablet 1 g PO QID 05/15/22 05/15/22 History Past Med/Surg History Medical History (Updated 05/15/22 @ 20:35 by Shayla Leyva PA-C) Cancer PROSTATE-2017 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) GERD (gastroesophageal reflux disease) Hyperlipidemia Migraine HX Mood disorder Narcolepsy MILD Peptic ulcer HX Sleep apnea CPAP Tachycardia EPISODE-2018 -CLEARED WITH STRESS TEST [facility]-NO CARDIOLOGY F/U Temporomandibular joint disorder [employer]IC[place] BILAT HAS NEVER LOCKED Surgical History H/O hemorrhoidectomy History of appendectomy History of colonoscopy History of esophagogastroduodenoscopy (EGD) History of Christi fundoplication History of prostatectomy 2017-NO CHEMO/NO RADIATION History of toe surgery LEFT FOOT History of tonsillectomy Family History Father Family history of diabetes mellitus Social History Smoking Status: Never smoker Second Hand Exposure: No; Do You Dip or Chew Tobacco: No; Hx Alcohol Use: No Hx Substance Use: No Preferred Language: Welsh Communication Ability: Effective Visual Impairment: No Limitations Public Improvement Inspector Required: No Beliefs That Will Affect Care: None Current Living Situation: Spouse Feels Safe at Home: Yes Safety Concerns: Feels Safe At This Time Assistive Devices: Glasses Review of Systems Review of Systems: At least ten systems reviewed and negative except as noted in the HPI. Physical Exam Physical Exam: General Appearance: WD/WN, vitals as above, NAD, sitting up in bed, pleasant, conversing easily Head: normocephalic, atraumatic Eyes: normal inspection, PERRL, conjunctivae normal, anicteric sclerae ENT: external ear and nose normal, oropharynx normal Neck: normal visual inspection, trachea midline, no thyromegaly Respiratory: normal respiratory effort, lungs clear to auscultation, no wheeze, rales, rhonchi. No accessory muscle use Cardiovascular: regular rate, rhythm, no murmur, normal peripheral pulses, no BLE edema. Vessels: no JVD Chest: normal inspection of chest Abdomen/GI: normal bowel sounds, soft, nontender, no hepatosplenomegaly Extremities/Musculoskeletal: no cyanosis or clubbing, extremities motor strength 5/5 Neurologic: PERRL, EOMI, accommodation nl, no face palsy, no dysarthria, CN's II-XI intact bilaterally and moves all extremities Psychiatric: A+Ox3, euthymic affect Skin: no rashes, normal color, warm/dry Results & Data Results & Data ([facility]) Vital Signs (Past 12 Hours) Vital Signs Temp Pulse Pulse Resp BP BP Pulse Ox 05/15/22 16:20 67 20 91 05/15/22 16:10 71 21 94 05/15/22 16:00 69 19 91 05/15/22 16:00 127/74 05/15/22 15:50 69 21 91 05/15/22 15:40 72 22 92 05/15/22 15:30 73 18 93 05/15/22 15:30 133/83 05/15/22 15:20 78 23 93 05/15/22 15:13 82 21 94 05/15/22 15:12 149/78 H 05/15/22 15:28 78 19 95 05/15/22 15:26 73 19 149/78 H 95 05/15/22 15:26 95 05/15/22 14:59 36.5 C 91 H 18 128/80 94 O2 Del Method 05/15/22 16:20 05/15/22 16:10 05/15/22 16:00 05/15/22 16:00 05/15/22 15:50 05/15/22 15:40 05/15/22 15:30 05/15/22 15:30 05/15/22 15:20 05/15/22 15:13 05/15/22 15:12 05/15/22 15:28 Room Air 05/15/22 15:26 Room Air 05/15/22 15:26 Room Air 05/15/22 14:59 Room Air Laboratory Results Short CBC 05/15/22 Range/Units 15:23 WBC 8.95 (4.8-10.8) K/ul Hgb 14.0 (14.0-18.0) g/dl Hct 42.9 (40.1-51.0) % Plt Count 207 (130-400) K/uL BMP 05/15/22 15:23 Sodium 139 Potassium 4.1 Chloride 109 H Carbon Dioxide 27 BUN 15 Creatinine 0.92 Glucose 116 H Calcium 8.7 Liver Function 05/15/22 Range/Units 15:23 Total Bilirubin 0.4 (0.2-1.0) mg/dl AST 25 (13-39) U/L ALT 30 (7-52) U/L Alkaline Phosphatase 79 (34-104) U/L Albumin 4.5 (3.4-5.0) gm/dl Diagnostic Findings Chest X-Ray 05/15/22 15:18 SINGLE VIEW CHEST CLINICAL HISTORY: Atypical chest pain FINDINGS: An AP, portable, upright chest radiograph is compared to study dated 09/13/2021. The heart is mildly enlarged. The pulmonary vasculature is noncongested. Chronic interstitial thickening similar to previous. The lungs and pleural spaces are clear. No pneumothorax is seen. The bony thorax is grossly intact noting dependent atelectasis. IMPRESSION: No active disease in the chest. ACT 112: Negative or not required by law. Electronically signed by: Renan Grossman M.D. 05/15/2022 3:45 PM ECG Additional Comments: ECG independently reviewed - NSR at [address] changes
[2022-05-15] MEDS ORDERED: NITROGLYCERIN SL 0.4 MG/TAB TAB SL PRN (18:15)
[2022-05-15] MEDS ORDERED: POLYETHYLENE (MIRALAX) 17 GM PACK PO PRN (18:15)
[2022-05-15] MEDS ORDERED: ONDANSETRON INJ 2 MG/ML 2 ML VIAL IV PRN (18:15)
[2022-05-15] MEDS ORDERED: ACETAMINOPHEN 325 MG TAB PO PRN (18:15)
[2022-05-15] MEDS ORDERED: ASPIRIN 81 MG CHEW PO STA (20:15)
[2022-05-15] MEDS ORDERED: ASPIRIN 81 MG ECTAB PO ONE (20:30)
[2022-05-15] MEDS ORDERED: traZODone HCL 100 MG TAB PO SCH (21:00)
[2022-05-15] MEDS ORDERED: HEPARIN SOD 5,000 UNIT/0.5 ML VIAL SQ SCH (21:00)
[2022-05-15] MEDS ORDERED: GABAPENTIN 600 MG TAB PO SCH (21:00)
[2022-05-15] MEDS ORDERED: ROSUVASTATIN CALCIUM 10 MG TAB PO SCH (21:00)
[2022-05-15] MEDS ORDERED: CHOLECALCIFEROL 1,000 UNITS 25 MCG TAB PO SCH (21:00)
[2022-05-15] MEDS ORDERED: NON-FORMULARY MEDICATION (Glucosamine-Chondroitin [Osteo Bi-Flex] 250-200 mg Tablet) PO SCH (21:00)
[2022-05-15] MEDS: ACETAMINOPHEN 325 MG TAB PO SCH (21:19)
[2022-05-15] MEDS: ARTIFICIAL TEARS OP SCH (21:20)
[2022-05-15] MEDS: DOCUSATE SODIUM 100 MG CAP PO SCH (21:22)
[2022-05-15] MEDS: DICYCLOMINE HCL 10 MG CAP PO SCH (21:22)
[2022-05-15] MEDS: CEROVITE ADV FORMULA TAB PO SCH (21:23)
[2022-05-15] MEDS: PANTOprazole 40 MG TAB PO SCH (21:24)
[2022-05-15] MEDS: TAMSULOSIN HCL 0.4 MG CAP PO SCH (21:25)
[2022-05-15] MEDS: SUCRALFATE 1 GM TAB PO SCH (21:25)
[2022-05-15] MEDS ORDERED: ASPIRIN 300 MG SUPP PR ONE (21:30)
--- NOTE | 2022-05-15 21:30 | Communication Note ---
Date of Service: May 15, 2022 Rectal aspirin given for CAD prevention until ACS ruled out in light of GAVE history.
[2022-05-15 21:44] LABS: Partial Thromboplastin Ratio 0.9; Partial Thromboplastin Time 23.5 Seconds (21.0-31.0)
[2022-05-16 06:37] LABS: Hematocrit (blood only) 43.8 % (40.1-51.0); Mean Corpuscular Hemoglobin 29.9 pg (25.0-34.0); Mean Corpuscular Volume 93.4 fL (80.0-100.0); Mean Platelet Volume 9.8 fL (9.4-12.4); Platelet Count 198 K/uL (130-400); RDW Coefficient of Variation 14.4 % (11.5-14.5); RDW Standard Deviation 49.5 fL (36.4-46.3); Red Blood Count 4.69 M/uL (4.63-6.08)
[2022-05-16 07:02] LABS: BUN Creatinine Ratio 13.5 (10-20); Calcium 8.9 mg/dl (8.5-10.1); Chol HDL Ratio 3.3 (0-5); Creatinine Clr Calc Pharmacy 81.6 ml/min; Est GFR (African American) 79.8 ml/min; Est GFR (Non-African American) 68.8 ml/min; Potassium 5.2 mmol/L (3.5-5.1)
[2022-05-16 07:03] LABS: Troponin I High Sensitivity 4.5 pg/ml (0-20)
[2022-05-16] MEDS: DICYCLOMINE HCL 10 MG CAP PO SCH (08:51)
[2022-05-16] MEDS: PANTOprazole 40 MG TAB PO SCH (08:51)
[2022-05-16] MEDS: DOCUSATE SODIUM 100 MG CAP PO SCH (08:51)
[2022-05-16] MEDS: SUCRALFATE 1 GM TAB PO SCH ×3 (08:51→16:53)
[2022-05-16] MEDS: CEROVITE ADV FORMULA TAB PO SCH (08:51)
[2022-05-16] MEDS: TAMSULOSIN HCL 0.4 MG CAP PO SCH (08:51)
[2022-05-16] MEDS: ACETAMINOPHEN 325 MG TAB PO SCH (08:52)
[2022-05-16] MEDS: ARTIFICIAL TEARS OP SCH (08:55)
[2022-05-16] MEDS ORDERED: SOLRIAMFETOL 150 MG PO SCH (09:00)
[2022-05-16] MEDS ORDERED: HEPARIN SOD 5,000 UNIT/0.5 ML VIAL SQ SCH (09:00)
[2022-05-16] MEDS ORDERED: ADVANCED PROBIOTIC 1250 MG CAPSULE PO SCH (09:00)
[2022-05-16] MEDS ORDERED: buPROPion XL 300 MG TABCR PO SCH (09:00)
[2022-05-16] MEDS ORDERED: FAMOTIDINE 20 MG TAB PO SCH (09:00)
[2022-05-16] MEDS ORDERED: MULTIVITAMIN TAB PO SCH (09:00)
[2022-05-16] MEDS ORDERED: DULoxetine HCL 60 MG CAP PO SCH (09:00)
--- NOTE | 2022-05-16 09:19 | Cardiology Consultation ---
Date of Consultation May 16, 2022 Assessment & Plan (1) DINH (dyspnea on exertion): (2) Hyperlipidemia: (3) Family history of heart disease: Plan The patient's cardiac markers and EKGs are negative. I believe we may proceed with an exercise stress echocardiogram to screen him for coronary artery disease. Further evaluation and treatment following the above. History of Present Illness Attending Physician: Harish Carroll MD History of Present Illness This is a 67-year-old male patient with no prior history of heart disease. He does admit to having exercise-induced asthma however, it has not been a problem for many years. Recently he has been noticing some dyspnea on exertion which has been unusual for him. Yesterday he was at the [facility] and walking up stairs to his seat. He became short of breath with diaphoresis which lasted for several minutes. He decided to come to the emergency department. His cardiac markers are negative and his EKG showed no acute changes. He does have some risk factors for heart disease including a family history. Allergies Allergy/AdvReac Type Severity Reaction Status Date / Time Iodinated Contrast Media Allergy Severe Anaphylaxis Unverified 09/13/21 14:19 iodine Allergy Severe Anaphylaxis Verified 09/13/21 14:17 meperidine Allergy Severe Hypotension Verified 09/13/21 00:04 NSAIDS (Non-Steroidal Allergy Severe LOW BP, Verified 09/13/21 00:04 Anti-Inflamma STOMACH ISSUES shellfish derived AdvReac Intermediate DIARRHEA, Verified 09/13/21 00:04 ABDOMINAL CRAMPING Home Medications Medication Instructions Recorded Confirmed Type Bifidobacterium infantis 4 mg 4 mg PO QAM 02/27/20 05/15/22 History capsule (Align) acetaminophen 650 mg 1,300 mg PO Q12H 02/27/20 05/15/22 History tablet,extended release (Tylenol Arthritis Pain) bupropion HCl 300 mg 24 hr tablet, 300 mg PO QAM 02/27/20 05/15/22 History extended release (Wellbutrin XL) cholecalciferol (vitamin D3) 25 25 mcg PO QPM 02/27/20 05/15/22 History mcg (1,000 unit) capsule (Vitamin D3) docusate sodium 250 mg capsule 250 mg PO BID 02/27/20 05/15/22 History duloxetine 60 mg capsule,delayed 60 mg PO QAM 02/27/20 05/15/22 History release gabapentin 600 mg tablet 600 mg PO HS 02/27/20 05/15/22 History glucosamine-chondroitin 250 mg-200 1 tab PO BID 02/27/20 05/15/22 History mg tablet (Osteo Bi-Flex) multivitamin 1 tab PO QAM 02/27/20 05/15/22 History pantoprazole 40 mg tablet,delayed 40 mg PO BID 02/27/20 05/15/22 History release peg 400-propylene glycol 0.4 %-0.3 1 drp OPB BID 02/27/20 05/15/22 History % eye drops (Systane (propylene glycol)) rosuvastatin 10 mg tablet 10 mg PO HS 02/27/20 05/15/22 History tamsulosin 0.4 mg capsule 0.4 mg PO BID 02/27/20 05/15/22 History trazodone 100 mg tablet 100 mg PO HS 02/27/20 05/15/22 History zaleplon 5 mg capsule 5 mg PO HS PRN Sleep 02/27/20 05/15/22 History dicyclomine 10 mg capsule 10 mg PO BID 09/13/21 05/15/22 History solriamfetol 150 mg tablet (Sunosi) 150 mg PO DAILY 09/13/21 05/15/22 History vit C 250 mg-vit E 90 mg-zinc 40 1 tab PO BID 09/13/21 05/15/22 History mg-copper 1 yw-klupce-ihmlay capsule (PreserVision AREDS-2) famotidine 20 mg tablet (Pepcid) 20 mg PO DAILY 05/15/22 05/15/22 History sucralfate 1 gram tablet 1 g PO QID 05/15/22 05/15/22 History Patient History Medical History Cancer PROSTATE-2017 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) GERD (gastroesophageal reflux disease) Hyperlipidemia Migraine HX Mood disorder Narcolepsy MILD Peptic ulcer HX Sleep apnea CPAP Tachycardia EPISODE-2019 -CLEARED WITH STRESS TEST [facility]-NO CARDIOLOGY F/U Temporomandibular joint disorder CLICKS BILAT HAS NEVER LOCKED Surgical History H/O hemorrhoidectomy History of appendectomy History of colonoscopy History of esophagogastroduodenoscopy (EGD) History of Christi fundoplication History of prostatectomy 2017-NO CHEMO/NO RADIATION History of toe surgery LEFT FOOT History of tonsillectomy Family History Father Family history of diabetes mellitus Social History Smoking Status: Never smoker Second Hand Exposure: No; Do You Dip or Chew Tobacco: No; Hx Alcohol Use: No Hx Substance Use: No Preferred Language: Swiss Communication Ability: Effective Visual Impairment: No Limitations 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 All other 10 point review of systems are negative. Physical Exam Physical Exam: General: no acute distress and stated age Head: normocephalic, no masses, lesions, tenderness or abnormalities Eyes: conjunctiva are pink and non-injected, sclera clear Neck: supple, no adenopathy, no bruits, normal jugular venous pulse, no hepatojugular reflux Chest: normal shape and normal respiratory effort Lungs: clear to auscultation and percussion Cardiac Exam: - regular rate & rhythm, no murmurs gallops or rubs - normal S1, normal S2 Pulses: 2(+) throughout Abdomen: abdomen soft, non-tender, no abnormal masses and no hepatosplenomegaly Musculoskeletal: no gait disturbance, no joint inflammation, no deforming arthritis Extremities: no edema and no cyanosis Neuro: grossly normal exam Results & Data ([facility]) Vital Signs (Past 12 Hours) Vital Signs Temp Pulse Pulse Resp BP Pulse Ox O2 Del Method 05/16/22 08:15 36.7 C 61 18 139/74 95 Room Air 05/16/22 03:12 36.7 C 56 L 16 143/80 H 93 Room Air, CPAP 05/15/22 22:02 61 05/15/22 23:21 36.6 C 58 L 18 147/80 H 94 Room Air Laboratory Results Laboratory Results - last 24 hr 05/15/22 05/15/22 05/15/22 15:18 15:23 15:23 WBC 8.95 RBC 4.64 Hgb 14.0 Hct 42.9 MCV 92.5 MCH 30.2 MCHC 32.6 RDW Std Deviation 48.2 H RDW Coeff of Alexis 14.3 Plt Count 207 MPV 9.9 Immature Gran % (Auto) 0.2 Neut % (Auto) 69.2 Lymph % (Auto) 17.2 Fleming % (Auto) 6.5 Eos % (Auto) 6.0 Baso % (Auto) 0.9 Neut # (Auto) 6.19 Lymph # (Auto) 1.54 Fleming # (Auto) 0.58 Eos # (Auto) 0.54 H Baso # (Auto) 0.08 Immature Gran # (Auto) 0.02 APTT PTT Ratio Sodium 139 Potassium 4.1 Chloride 109 H Carbon Dioxide 27 Anion Gap 3 BUN 15 Creatinine 0.92 Est Cr Clr Drug Dosing 98.0 Est GFR ( Amer) 100.1 Est GFR (Non-Af Amer) 86.4 BUN/Creatinine Ratio 16.3 Glucose 116 H Estimat Average Glucose Hemoglobin A1c Calcium 8.7 Total Bilirubin 0.4 AST 25 ALT 30 Alkaline Phosphatase 79 Troponin I High Sens 4.2 Total Protein 7.2 Albumin 4.5 Globulin 2.7 Albumin/Globulin Ratio 1.7 Triglycerides Cholesterol LDL Cholesterol, Calc VLDL Cholesterol, Calc HDL Cholesterol Cholesterol/HDL Ratio Lipase 31 SARS-CoV-2, RNA, NAAT NEGATIVE 05/15/22 05/15/22 05/16/22 21:13 21:13 06:07 WBC 7.30 RBC 4.69 Hgb 14.0 Hct 43.8 MCV 93.4 MCH 29.9 MCHC 32.0 RDW Std Deviation 49.5 H RDW Coeff of Alexis 14.4 Plt Count 198 MPV 9.8 Immature Gran % (Auto) Neut % (Auto) Lymph % (Auto) Fleming % (Auto) Eos % (Auto) Baso % (Auto) Neut # (Auto) Lymph # (Auto) Fleming # (Auto) Eos # (Auto) Baso # (Auto) Immature Gran # (Auto) APTT 23.5 PTT Ratio 0.9 Sodium Potassium Chloride Carbon Dioxide Anion Gap BUN Creatinine Est Cr Clr Drug Dosing Est GFR ( Amer) Est GFR (Non-Af Amer) BUN/Creatinine Ratio Glucose Estimat Average Glucose Hemoglobin A1c Calcium Total Bilirubin AST ALT Alkaline Phosphatase Troponin I High Sens 3.5 Total Protein Albumin Globulin Albumin/Globulin Ratio Triglycerides Cholesterol LDL Cholesterol, Calc VLDL Cholesterol, Calc HDL Cholesterol Cholesterol/HDL Ratio Lipase SARS-CoV-2, RNA, NAAT 05/16/22 05/16/22 06:07 06:07 WBC RBC Hgb Hct MCV MCH MCHC RDW Std Deviation RDW Coeff of Alexis Plt Count MPV Immature Gran % (Auto) Neut % (Auto) Lymph % (Auto) Fleming % (Auto) Eos % (Auto) Baso % (Auto) Neut # (Auto) Lymph # (Auto) Fleming # (Auto) Eos # (Auto) Baso # (Auto) Immature Gran # (Auto) APTT PTT Ratio Sodium 141 Potassium 5.2 H D Chloride 107 Carbon Dioxide 33 H Anion Gap 1 L BUN 15 Creatinine 1.11 Est Cr Clr Drug Dosing 81.6 Est GFR ( Amer) 79.8 Est GFR (Non-Af Amer) 68.8 BUN/Creatinine Ratio 13.5 Glucose 99 Estimat Average Glucose Pending Hemoglobin A1c Pending Calcium 8.9 Total Bilirubin AST ALT Alkaline Phosphatase Troponin I High Sens 4.5 Total Protein Albumin Globulin Albumin/Globulin Ratio Triglycerides 179 H Cholesterol 153 LDL Cholesterol, Calc 70 VLDL Cholesterol, Calc 36 H HDL Cholesterol 47 Cholesterol/HDL Ratio 3.3 Lipase SARS-CoV-2, RNA, NAAT Medications Administered Current Inpatient Medications Acetaminophen (Acetaminophen 325 Mg Tab) 1,300 mg PO BID SHERWIN Stop: 06/14/22 20:59 Last Admin: 05/16/22 08:52 Dose: 1,300 mg Artificial Tears (Artificial Tears) 1 drops OP BID SHERWIN Stop: 06/14/22 20:59 Last Admin: 05/16/22 08:55 Dose: Not Given Bupropion HCl (Bupropion Xl 300 Mg Tabcr) 300 mg PO QAM SHERWIN Stop: 06/15/22 08:59 Last Admin: 05/16/22 08:52 Dose: 300 mg Dicyclomine HCl (Dicyclomine Hcl 10 Mg Cap) 10 mg PO BID SHERWIN Stop: 06/14/22 20:59 Last Admin: 05/16/22 08:51 Dose: 10 mg Docusate Sodium (Docusate Sodium 100 Mg Cap) 200 mg PO BID SHERWIN Stop: 06/14/22 20:59 Last Admin: 05/16/22 08:51 Dose: 200 mg Duloxetine HCl (Duloxetine Hcl 60 Mg Cap) 60 mg PO QAM [facility] Stop: 06/15/22 08:59 Last Admin: 05/16/22 08:52 Dose: 60 mg Famotidine (Famotidine 20 Mg Tab) 20 mg PO DAILY SHERWIN Stop: 06/15/22 08:59 Last Admin: 05/16/22 08:51 Dose: 20 mg Gabapentin (Gabapentin 600 Mg Tab) 600 mg PO HS [facility] Stop: 06/14/22 20:59 Last Admin: 05/15/22 21:23 Dose: 600 mg Heparin Sodium (Porcine) (Heparin Sod 5,000 Unit/0.5 Ml Vial) 5,000 units SQ Q12 SHERWIN Stop: 06/15/22 08:59 Last Admin: 05/16/22 08:52 Dose: 5,000 units Lactobacillus Acidophilus (Advanced Probiotic 1250 Mg Capsule) 2 cap PO QAM [facility] Stop: 06/15/22 08:59 Last Admin: 05/16/22 08:51 Dose: 2 cap Miscellaneous (Zaleplon 5 Mg --Order Awaiting Action) 1 each N/A QS [facility] Stop: 06/15/22 00:00 Last Admin: 05/16/22 09:10 Dose: Not Given Multivitamins (Multivitamin Tab) 1 tab PO QAM [facility] Stop: 06/15/22 08:59 Last Admin: 05/16/22 08:51 Dose: 1 tab Multivitamins/Minerals (Cerovite Adv Formula Tab) 1 tab PO BID SHERWIN Stop: 06/14/22 20:59 Last Admin: 05/16/22 08:51 Dose: 1 tab Nitroglycerin (Nitroglycerin Sl 0.4 Mg/Tab Tab) 0.4 mg SL UD PRN PRN Reason: Chest Pain Stop: 06/14/22 18:14 Solriamfetol [Sunosi (] 150 Mg) 1 each PO DAILY [facility] Stop: 06/15/22 08:59 Last Admin: 05/16/22 08:52 Dose: 150 mg Ondansetron HCl (Ondansetron Inj 2 Mg/Ml 2 Ml Vial) 4 mg IV Q6H PRN PRN Reason: Nausea Stop: 06/14/22 18:14 Pantoprazole Sodium (Pantoprazole 40 Mg Tab) 40 mg PO BID [facility] Stop: 06/14/22 20:59 Last Admin: 05/16/22 08:51 Dose: 40 mg Polyethylene Glycol (Polyethylene (Miralax) 17 Gm Pack) 17 gm PO DAILY PRN PRN Reason: Constipation Stop: 06/14/22 18:14 Rosuvastatin Calcium (Rosuvastatin Calcium 10 Mg Tab) 10 mg PO HS [facility]ERWIN Stop: 06/14/22 20:59 Last Admin: 05/15/22 21:24 Dose: 10 mg Sucralfate (Sucralfate 1 Gm Tab) 1 gm PO QID [facility] Stop: 06/14/22 20:59 Last Admin: 05/16/22 08:51 Dose: 1 gm Tamsulosin HCl (Tamsulosin Hcl 0.4 Mg Cap) 0.4 mg PO BID [facility]WIN Stop: 06/14/22 20:59 Last Admin: 05/16/22 08:51 Dose: 0.4 mg Trazodone HCl (Trazodone Hcl 100 Mg Tab) 100 mg PO HS [facility] Stop: 06/14/22 20:59 Last Admin: 05/15/22 21:25 Dose: 100 mg Vitamin D (Cholecalciferol 1,000 Units 25 Mcg Tab) 1,000 units PO QPM [facility] Stop: 06/14/22 20:59 Last Admin: 05/15/22 21:21 Dose: 1,000 units
[2022-05-16 09:26] LABS: Estimated Average Glucose 114 mg/dl; Hemoglobin A1C 5.6 % (4.5-5.6)
--- NOTE | 2022-05-16 14:24 | Electrocardiogram Report ---
Test Reason : Blood Pressure : / mmHG Vent. Rate : 084 BPM Atrial Rate : 084 BPM P-R Int : 154 ms QRS Dur : 096 ms QT Int : 380 ms P-R-T Axes : 043 -10 040 degrees QTc Int : 449 ms Normal sinus rhythm Normal ECG When compared with ECG of 13-SEP-2021 10:22, No significant change was found Confirmed by Gage Raymond ([id number]) on 05/16/2022 2:24:12 PM Referred By: REFERRED SELF Confirmed By:Gage Raymond
[2022-05-16 15:06] LABS: D Dimer 280 ug/L FEU (0-500)
--- NOTE | 2022-05-16 15:45 | CT Scan Report ---
CT chest diagnostic wo con CLINICAL HISTORY: dyspnea on exertion, r/o pneumonia, effusion TECHNIQUE: Multidetector row helical CT of the chest was performed. Coronal and sagittal reformations were obtained. Automated dose lowering techniques and/or adjustment according to patient size were u tilized for this exam. CT DOSE: 685.55 mGy.cm Comparison: Comparison is made to chest radiograph 05/15/2019 FINDINGS: Lungs and pleura: Biapical scarring is seen. Bibasilar atelectasis is seen. 3 and 4 mm nodules are se en in the right middle lobe (series 4 images 175 and 193) Heart and pericardium: Heart size is normal. No pericardial effusion. Vessels: Unremarkable. Mediastinum and bernice: Esophageal wall thickening is seen. Chest wall and lower neck: Unremarkable. Abdomen: Patient is status post cholecystectomy. Bones: Degenerative changes in the thoracic spine. IMPRESSION: No evidence of pneumonia or effusion. A few tiny pulmonary nodules are as above. ACT 112: Negative or not required by law. Electronically signed by: Mikey Potter M.D. 05/16/2022 3:44 PM
--- NOTE | 2022-05-16 19:01 | Hospitalist Progress Note ---
Date of Service May 16, 2022 Assessment & Plan (1) Chest pain: (2) DINH (dyspnea on exertion): Plan: This is a 67-year-old male with PMH of exercise-induced asthma, history of prostate cancer, depression, idiopathic hypersomnolence, RLS, DC on CPAP, GERD/GAVE and other medical problems listed below who presents with chest pain that began earlier today that has since resolved. Chest pain, acute coronary syndrome ruled out Troponins negative x3 EKG- NSR without acute ST changes CXR-no active disease in chest S/p stress test: No inducible ischemia Location Analyst consulted Dr. Childers, no other intervention at this point, outpatient follow-up Dyspnea on exertion Possibly secondary to underlying asthma? CT chest: Lungs and pleura: Biapical scarring is seen. Bibasilar atelectasis is seen. 3 and 4 mm nodules are seen in the right middle lobe (series 4 images 175 and 193) Heart and pericardium: Heart size is normal. No pericardial effusion. Vessels: Unremarkable. Mediastinum and bernice: Esophageal wall thickening is seen. Chest wall and lower neck: Unremarkable. Abdomen: Patient is status post cholecystectomy. Bones: Degenerative changes in the thoracic spine. IMPRESSION: No evidence of pneumonia or effusion. A few tiny pulmonary nodules are as above. -- Two-step exercise test: Patient not requiring oxygen on ambulation -- Advised to resume previously prescribed Breo, albuterol as needed For pulmonary function test this week -- Follow-up pulmonary nodules outpatient (3) GAVE (gastric antral vascular ectasia): (4) GERD (gastroesophageal reflux disease): Plan: Continue Pepcid, Protonix. (5) Mood disorder: Plan: Continue Wellbutrin, duloxetine (6) Hyperlipidemia: Plan: Continue statin (7) Sleep apnea: Plan: CPAP HS Idiopathic hypersomnolence Trazodone HS, Sunosi not on formulary DVT Ppx: SQ heparin Code status: FULL PCP: Gris Discharge home today Follow-up with PCP in 1 week Admission and Anticipated Discharge Date Admission Date: May 15, 2022 Subjective Follow-up for chest pain, dyspnea and exertion, etc. Seen resting in bed, comfortable, not in distress States he feels fine overall Negative chest pain, shortness of breath, palpitations, dizziness No cough, fevers or chills No other symptoms Had two-step exercise test No shortness of breath, but felt tired after walking in the hallways States he is feeling comfortable for discharge today For pulmonary function testing as an outpatient Review of Systems Review of Systems: all noted and negative except for above Physical Exam Physical Exam: General- oriented x 3, not in distress, speaks in sentences with no effort or accessory muscle use Eyes- anicteric Neck- no JVD Lungs- clear breath sounds bilaterally, no rales/wheezes Heart- normal rate, regular rhythm; no murmurs Abdomen- normal bowel sounds, nondistended, soft, nontender Extremities- no pretibial edema, no calf tenderness Neuro- alert, oriented x 3; no gross focal neurologic deficits Skin- warm & dry Results & Data Results & Data ([facility]) Vital Signs (Past 12 Hours) Vital Signs Temp Pulse Pulse Pulse Pulse Pulse Pulse 05/16/22 17:41 36.7 C 73 72 05/16/22 16:19 92 H 72 70 05/16/22 15:19 72 05/16/22 15:08 36.7 C 72 05/16/22 11:48 36.6 C 62 05/16/22 08:30 66 05/16/22 08:15 36.7 C 61 Resp Resp Resp Resp BP BP Pulse Ox 05/16/22 17:41 18 127/72 117/70 93 05/16/22 16:19 18 18 16 05/16/22 15:19 05/16/22 15:08 18 117/70 93 05/16/22 11:48 16 127/72 91 05/16/22 08:30 05/16/22 08:15 18 139/74 95 Pulse Ox Pulse Ox Pulse Ox O2 Del Method 05/16/22 17:41 05/16/22 16:19 93 94 92 05/16/22 15:19 05/16/22 15:08 Room Air 05/16/22 11:48 Room Air 05/16/22 08:30 05/16/22 08:15 Room Air all noted and reviewed including below
--- NOTE | 2022-05-16 19:41 | Discharge Summary ---
Discharge Summary Date of Service May 16, 2022 Notes For Next Care Provider Pulmonary function test this week Cardiology follow-up in 2 to 3 weeks Medication Changes From Visit None Admission HPI Per Admitting Provider This is a 67-year-old male with PMH of exercise-induced asthma, history of prostate cancer, depression, idiopathic hypersomnolence, RLS, DC on CPAP, GERD/GAVE and other medical problems listed below who presents with chest pain that began earlier today. Patient has been experiencing dyspnea on exertion for the past 6 weeks. Was walking to his mailbox earlier today when he experienced more significant dyspnea on exertion as well as a tight, pressure-like pain across his chest with associated diaphoresis. Pain resolved when he stopped walking and stood still. Has been pain-free since arrival to the hospital. Denies any known cardiac history. Is not on aspirin. Is on 10 mg atorvastatin daily. No known history of hypertension. Is a non-smoker. Does have family history of CAD with father requiring CABG in the past. Was seen in PCPs office last week with EKG and plans for outpatient stress test in June as well as PFT testing in June. Currently resting comfortably and denies any fever, chills, lightheadedness, headache, chest pain, palpitations, shortness of breath, nausea, vomiting, abdominal pain, dysuria, diarrhea or constipation. Admission Exam Per Admitting Provider General Appearance:WD/WN, vitals as above, NAD, sitting up in bed, pleasant, conversing easily Head: normocephalic, atraumatic Eyes:normal inspection, PERRL, conjunctivae normal, anicteric sclerae ENT: external ear and nose normal, oropharynx normal Neck: normal visual inspection, trachea midline, no thyromegaly Respiratory:normal respiratory effort, lungs clear to auscultation, no wheeze, rales, rhonchi. No accessory muscle use Cardiovascular: regular rate, rhythm, no murmur, normal peripheral pulses, no BLE edema. Vessels: no JVD Chest: normal inspection of chest Abdomen/GI: normal bowel sounds, soft, nontender, no hepatosplenomegaly Extremities/Musculoskeletal: no cyanosis or clubbing, extremities motor strength 5/5 Neurologic: PERRL, EOMI, accommodation nl, no face palsy, no dysarthria, CN's II-XI intact bilaterally and moves all extremities Psychiatric:A+Ox3, euthymic affect Skin: no rashes, normal color, warm/dry Principal Dx & Hospital Course #1 = Principal Diagnosis (1) Chest pain: (2) DINH (dyspnea on exertion): This is a 67-year-old male with PMH of exercise-induced asthma, history of prostate cancer, depression, idiopathic hypersomnolence, RLS, DC on CPAP, GERD/GAVE and other medical problems listed below who presents with chest pain that began earlier today that has since resolved. Chest pain, acute coronary syndrome ruled out Troponins negative x3 EKG- NSR without acute ST changes CXR-no active disease in chest S/p stress test: No inducible ischemia Photographic Plate Maker consulted Dr. Childers, no other intervention at this point, outpatient follow-up Dyspnea on exertion Possibly secondary to underlying asthma? CT chest: Lungs and pleura: Biapical scarring is seen. Bibasilar atelectasis is seen. 3 and 4 mm nodules are seen in the right middle lobe (series 4 images 175 and 193) Heart and pericardium: Heart size is normal. No pericardial effusion. Vessels: Unremarkable. Mediastinum and bernice: Esophageal wall thickening is seen. Chest wall and lower neck: Unremarkable. Abdomen: Patient is status post cholecystectomy. Bones: Degenerative changes in the thoracic spine. IMPRESSION: No evidence of pneumonia or effusion. A few tiny pulmonary nodules are as above. -- Two-step exercise test: Patient not requiring oxygen on ambulation -- Advised to resume previously prescribed Breo, albuterol as needed For pulmonary function test this week -- Follow-up pulmonary nodules outpatient (3) GAVE (gastric antral vascular ectasia): (4) GERD (gastroesophageal reflux disease): Continue Pepcid, Protonix. (5) Mood disorder: Continue Wellbutrin, duloxetine (6) Hyperlipidemia: Continue statin (7) Sleep apnea: CPAP HS Idiopathic hypersomnolence Trazodone HS, Sunosi not on formulary DVT Ppx: SQ heparin Code status: FULL PCP: Gris Discharge home today Follow-up with PCP in 1 week Discharge Exam General- oriented x 3, not in distress, speaks in sentences with no effort or accessory muscle use Eyes- anicteric Neck- no JVD Lungs- clear breath sounds bilaterally, no rales/wheezes Heart- normal rate, regular rhythm; no murmurs Abdomen- normal bowel sounds, nondistended, soft, nontender Extremities- no pretibial edema, no calf tenderness Neuro- alert, oriented x 3; no gross focal neurologic deficits Skin- warm & dry Updated Medication List Medication Instructions Recorded Confirmed Type Bifidobacterium infantis 4 mg 4 mg PO QAM 02/27/20 05/15/22 History capsule (Align) acetaminophen 650 mg 1,300 mg PO Q12H 02/27/20 05/15/22 History tablet,extended release (Tylenol Arthritis Pain) bupropion HCl 300 mg 24 hr tablet, 300 mg PO QAM 02/27/20 05/15/22 History extended release (Wellbutrin XL) cholecalciferol (vitamin D3) 25 25 mcg PO QPM 02/27/20 05/15/22 History mcg (1,000 unit) capsule (Vitamin D3) docusate sodium 250 mg capsule 250 mg PO BID 02/27/20 05/15/22 History duloxetine 60 mg capsule,delayed 60 mg PO QAM 02/27/20 05/15/22 History release gabapentin 600 mg tablet 600 mg PO HS 02/27/20 05/15/22 History glucosamine-chondroitin 250 mg-200 1 tab PO BID 02/27/20 05/15/22 History mg tablet (Osteo Bi-Flex) multivitamin 1 tab PO QAM 02/27/20 05/15/22 History pantoprazole 40 mg tablet,delayed 40 mg PO BID 02/27/20 05/15/22 History release peg 400-propylene glycol 0.4 %-0.3 1 drp OPB BID 02/27/20 05/15/22 History % eye drops (Systane (propylene glycol)) rosuvastatin 10 mg tablet 10 mg PO HS 02/27/20 05/15/22 History tamsulosin 0.4 mg capsule 0.4 mg PO BID 02/27/20 05/15/22 History trazodone 100 mg tablet 100 mg PO HS 02/27/20 05/15/22 History zaleplon 5 mg capsule 5 mg PO HS PRN Sleep 02/27/20 05/15/22 History dicyclomine 10 mg capsule 10 mg PO BID 09/13/21 05/15/22 History solriamfetol 150 mg tablet (Sunosi) 150 mg PO DAILY 09/13/21 05/15/22 History vit C 250 mg-vit E 90 mg-zinc 40 1 tab PO BID 09/13/21 05/15/22 History mg-copper 1 [id number] capsule (PreserVision AREDS-2) famotidine 20 mg tablet (Pepcid) 20 mg PO DAILY 05/15/22 05/15/22 History sucralfate 1 gram tablet 1 g PO QID 05/15/22 05/15/22 History Hospital Stay Data Consultations 05/15/22 16:25 ED Decision to Admit Stat 05/15/22 18:15 Consult Cardiology Routine Diagnostic Imagining Performed 05/16/22 15:16 CT chest diagnostic wo con Urgent Comparison: Comparison is made to chest radiograph 05/15/2019 FINDINGS: Lungs and pleura: Biapical scarring is seen. Bibasilar atelectasis is seen. 3 and 4 mm nodules are seen in the right middle lobe (series 4 images 175 and 193) Heart and pericardium: Heart size is normal. No pericardial effusion. Vessels: Unremarkable. Mediastinum and bernice: Esophageal wall thickening is seen. Chest wall and lower neck: Unremarkable. Abdomen: Patient is status post cholecystectomy. Bones: Degenerative changes in the thoracic spine. IMPRESSION: No evidence of pneumonia or effusion. A few tiny pulmonary nodules are as above. ACT 112: Negative or not required by law. Electronically signed by: Mikey Potter M.D. 05/16/2022 3:44 PM Pending Results Patient Have Any Pending Studies at Discharge: Yes Discharge Instructions Given to Patient (Per Discharging Provider) PLEASE RESUME YOUR USUAL MEDICATION REGIMEN, INCLUDING BREO AND ALBUTEROL NEEDED. PLEASE CALL YOUR PRIMARY CARE PHYSICIAN OR RETURN TO THE ER IF WITH WORSENING OF SYMPTOMS, INCLUDING SHORTNESS OF BREATH, CHEST PAIN, ETC FOLLOW UP WITH PRIMARY CARE PHYSICIAN OUTLINED ABOVE. FOLLOW UP WITH POWER TRANSMISSION ENGINEER DR. CHILDERS IN 2-3 WEEKS. Total Time Total Time Spent Total Time Spent (In Minutes): >30 minutes
--- NOTE | 2022-05-16 21:53 | Electrocardiogram Report ---
Test Reason : Blood Pressure : / mmHG Vent. Rate : 061 BPM Atrial Rate : 061 BPM P-R Int : 156 ms QRS Dur : 098 ms QT Int : 432 ms P-R-T Axes : 035 -12 043 degrees QTc Int : 434 ms Normal sinus rhythm Normal ECG When compared with ECG of 15-MAY-2022 15:08, No significant change was found Confirmed by Gage Raymond ([id number]) on 05/16/2022 9:53:10 PM Referred By: REFERRED SELF Confirmed By:Gage Raymond
--- NOTE | 2022-05-17 05:48 | Electrocardiogram Report ---
Test Reason : Blood Pressure : / mmHG Vent. Rate : 059 BPM Atrial Rate : 059 BPM P-R Int : 116 ms QRS Dur : 098 ms QT Int : 442 ms P-R-T Axes : -70 008 035 degrees QTc Int : 437 ms Unusual P axis, possible ectopic atrial bradycardia Abnormal ECG When compared with ECG of 15-MAY-2022 21:06, Ectopic atrial rhythm has replaced Sinus rhythm Confirmed by Gage Raymond ([id number]) on 05/17/2022 5:48:35 AM Referred By: REFERRED SELF Confirmed By:Gage Raymond
== END 2022-05-16 18:07 | disposition home or self-care (01) ==
LOC: 2S 14:53 → ED 14:53 → 2S 17:39
DX: Z91.041 Radiographic dye allergy status; Z91.013 Allergy to seafood; K21.9 Gastro-esophageal reflux disease without esophagitis; K31.819 Angiodysplasia of stomach and duodenum without bleeding; Z88.8 Allergy status to other drugs, medicaments and biological substances; Z85.46 Personal history of malignant neoplasm of prostate; E78.5 Hyperlipidemia, unspecified; R07.9 Chest pain, unspecified; Z79.899 Other long term (current) drug therapy; R06.00 Dyspnea, unspecified